=== PATIENT | female | born 1980 | race Caucasian/White ===

== ENCOUNTER 2020-12-19 13:55 | Outpatient (CLI) | payer OTHER, SELFPAY ==
--- NOTE | 2020-12-19 14:05 | US_ITS ---
WS: [id number] INDICATION: Posterior ear lump TECHNIQUE: Ultrasound soft tissue area of concern. FINDINGS: Ultrasound soft tissue area of concern posterior to the left ear. No evidence of pathologic mass or fluid collection. A few small normal-sized lymph nodes in this area measuring 7 x 4 mm and 6.2 x 4.5 mm. No other suspi cious findings. IMPRESSION: A few normal-sized lymph nodes in the area of concern. No other suspicious findings.
== END 2020-12-19 13:56 | disposition home or self-care (01) ==
LOC: RAD 14:01
PROVIDERS: PCP Family Medicine; Visit Provider Nurse Practitioner Family
DX: R59.9 Enlarged lymph nodes, unspecified (principal)
CPT/HCPCS: 76882

== ENCOUNTER 2021-01-19 08:50 | Emergency (ER) | payer OTHER, SELFPAY ==
[2021-01-19 08:53] VITALS: BP 113/83; PULSE 112; RESP 15; TEMP 36.8; O2SAT 98; BMI 18.0
[2021-01-19 08:59] VITALS: BP 92/65; PULSE 70; RESP 19; TEMP 36.9; O2SAT 99
--- NOTE | 2021-01-19 09:03 | ED_ITS ---
Documented by User: YAMILET Richardson 01/20/21 07:38 HPI - General Adult General: Chief complaint: General Medical Stated complaint: Vomiting, Fever, Feels really sick Time Seen by Provider: 01/19/21 09:01 History of Present Illness: HPI narrative: Patient is a 40-year-old female comes to the ED with cough, headache and diarrhea. Symptoms started 2 days ago. Her cough was initially productive but for the last 24 hours it has been dry. She has been having really bad diarrhea for the past 2 days as well. She endorses feeling very fatigued and has a headache. Patient had COVID-19 last year and states that this feels similar to her last episode of Covid. She tested negative for COVID-19 2 days ago at work. Associated symptoms: Reports malaise and nausea; Deny chest pain, dyspnea, headache(s), rash, palpitations or vomiting Review of Systems Const: Reports: fatigue and malaise; Denies: fever(s) or chills Eyes: Denies: change in vision or eye discomfort ENMT: Denies: throat pain, odynophagia, nasal discharge or nasal congestion Card: Denies: chest pain, palpitations, edema, swelling of feet/ankles, dyspnea on exertion or orthopnea Resp: Reports: non-productive cough; Denies: dyspnea or productive cough GI: Reports: nausea and diarrhea; Denies: abdominal pain, vomiting, constipation or hematochezia : Denies: flank pain, dysuria or hematuria Musc: Denies: neck pain, back pain or extremity swelling Skin/Breast: Denies: rash or new lesions Neuro: Denies: headache(s), numbness in extremities or weakness in extremities PFSH ED PFSH: Medical History Anxiety Rheumatoid arthritis Surgical History No pertinent past surgical history Social History Smoking and tobacco status: former smoker History of recent travel: No Female Reproductive History: Date of last menstrual period: 01/12/21 Physical Exam Const: COMMON NORMALS: no acute distress, patient oriented x3 and alert GENERAL APPEARANCE: cooperative and comfortable HENMT: COMMON NORMALS: normocephalic HEAD & SCALP: normocephalic MOUTH: moist mucous membranes abnormal Details: parched THROAT: posterior oropharynx normal and uvula midline Eye: COMMON NORMALS: Equal, round and reactive pupils present PUPIL: Yes Equal, round and reactive pupils present Neck/C-Spine: COMMON NORMALS: supple GENERAL: Yes normal visual inspection Resp: COMMON NORMALS: normal respiratory effort, No retractions, No use of accessory muscles and clear to auscultation bilaterally EFFORT & INSPECTION: Yes able to speak in complete sentences, No tachypneic, No respiratory distress and No labored AUSCULTATION: clear to auscultation bilaterally Cardio: COMMON NORMALS: regular rhythm, S1 normal heart sound present, S2 normal heart sound present, No gallops present (Cardio), No clicks present (Cardio), No murmurs present (Cardio) and Peripheral pulses 2+ throughout RATE: tachycardic (120's) RHYTHM: regular rhythm HEART SOUNDS: S1 normal heart sound present and S2 normal heart sound present PERIPHERAL PULSES: Peripheral pulses 2+ throughout GI: COMMON NORMALS: Normal to inspection, nondistended, normoactive bowel sounds present, Soft to palpation, non-tender and no masses PALPATION: Yes Soft to palpation : COMMON NORMALS: Yes no CVA tenderness BLADDER/KIDNEY EXAM: Yes no CVA tenderness Back/Pelvis: COMMON NORMALS: no CVA tenderness Extremity: COMMON NORMALS: normal to inspection Neuro: COMMON NORMALS: patient oriented x3 and moves all extremities SENSORIUM/ORIENTATION: Yes alert Skin: GENERAL SKIN EXAM: dry skin Course Vital Signs: Vital signs: Vital Signs Temperature 98.4 F 01/19/21 08:59 Pulse Rate 70 01/19/21 08:59 Respiratory Rate 19 H 01/19/21 08:59 Blood Pressure 92/65 01/19/21 08:59 Pulse Oximetry 99 01/19/21 08:59 MDM - General Adult MDM Narrative: Medical decision making narrative: Patient is a 40-year-old fem ozzie comes to the ED with diarrhea, cough and headache. Patient appears nontoxic in no acute distress or pain. Vitals?heart rate was a little tacky in the 110- 120 range but the rest of vitals were stable. Labs were unremarkable. Troponin negative. D-dimer normal. EKG-sinus rhythm, 79 bpm, no ST segment elevation or depression seen. Chest x-ray shows no acute findings. Rapid Covid test negat marky and PCR Covid test pending. Patient was given a liter of IV fluids while here in the ED and Zofran for some nausea. Patient was no longer tachycardic and rest of her vitals were stable as well. Her symptoms improved and she was feeling better. Patient diagnosed with viral syndrome. She was discharged home with a prescription for Zofran. Follow-up with PCP in 7 to 10 days reevaluation. Return to ED precautions given. Patient understood and agreed with plan. Lab Data: Attestation: I reviewed the patient's lab results. Labs: Lab Results 01/19/21 01/19/21 01/19/21 09:25 09:25 09:25 WBC 4.7 10^3/uL 10^3/ uL (4.0-10.0) RBC 5.05 10^6/uL 10^6 /uL (4.1-5.3) Hgb 14.8 g/dL g/dL (11.5-15.3) Hct 44.8 % % (37.0-47.0) MCV 88.7 fl fl (81-99) MCH 29.3 pg pg (28.0-34.0) MCHC 33.0 g/dL g/dL (30.0-36.0) RDW 11.7 % L % (12.1-15.1) Plt Count 183 10^3/cmm 10^3 /cmm (130-400) MPV 10.3 fL fL (7.4-10.4) Neut % (Auto) 61.4 % % Lymph % (Auto) 28.1 % % [place] % (Auto) 8.2 % % Eos % (Auto) 1.5 % % Baso % (Auto) 0.6 % % Neut # (Auto) 2.90 10^3/uL 10^3 /uL (1.8-7.7) Lymph # (Auto) 1.3 10^3/uL 10^3/ uL (0.8-4.8) [place] # (Auto) 0.4 10^3/uL 10^3/ uL (0.2-0.9) Eos # (Auto) 0.1 10^3/uL 10^3/ uL (0.0-0.8) Baso # (Auto) 0.0 10^3/uL 10^3/ uL (0.0-0.1) Nucleated RBC % (a uto) 0 % % Nucleated RBCs # 0.0 /100WBC /100W BC D-Dimer Sodium 137 mmol/L mmol/L (136-145) Potassium 3.8 mmol/L mmol/L (3.5-5.1) Chloride 104 mmol/L mmol/L (98-107) Carbon Dioxide 22 mmol/L mmol/L (22-29) Anion Gap 14.8 (5-19) BUN 6 mg/dL mg/dL (6-20) Creatinine 0.6 mg/dL mg/dL (0.5-0.9) GFR Calculation 111.3 mL/min mL/m in (90-130) Glucose 92 mg/dL mg/dL (65-115) Calculated Osmolal ity 281 mOsm/kg L mOs m/kg (285-295) Calcium 9.7 mg/dL mg/dL (8.5-10.5) Total Bilirubin 0.6 mg/dL mg/dL (0.15-1.2) AST 15 U/L U/L (0-32) ALT 13 U/L U/L (0-33) Alkaline Phosphata se 57 IU/L IU/L (35-105) Troponin T Baselin e Total Protein 6.7 g/dL g/dL (6.6-8.7) Albumin 4.8 g/dL g/dL (3.5-5.2) Globulin 1.9 g/dL g/dL (1.3-4.6) Lipase 19 U/L U/L (13-60) HCG, Qual Negative (Negative) Urine Color Urine Appearance Urine pH Ur Specific Gravit y Urine Protein Urine Glucose (UA) Urine Ketones Urine Blood Urine Nitrate Urine Bilirubin Prot Sulfosalicyli c Acd Urine Urobilinogen Ur Leukocyte Gayle ase Nasal/Oral COVID-1 9 PCR SARS-CoV-2 Ag (Rap id) 01/19/21 01/19/21 01/19/21 09:25 09:25 09:25 WBC RBC Hgb Hct MCV MCH MCHC RDW Plt Count MPV Neut % (Auto) Lymph % (Auto) [place] % (Auto) Eos % (Auto) Baso % (Auto) Neut # (Auto) Lymph # (Auto) [place] # (Auto) Eos # (Auto) Baso # (Auto) Nucleated RBC % (a uto) Nucleated RBCs # D-Dimer <= 0.27 ug/mIFEU ug/mIFEU (0-0.59) Sodium Potassium Chloride Carbon Dioxide Anion Gap BUN Creatinine GFR Calculation Glucose Calculated Osmolal ity Calcium Total Bilirubin AST ALT Alkaline Phosphata se Troponin T Baselin e 6 ng/L ng/L (0-10) Total Protein Albumin Globulin Lipase HCG, Qual Urine Color Urine Appearance Urine pH Ur Specific Gravit y Urine Protein Urine Glucose (UA) Urine Ketones Urine Blood Urine Nitrate Urine Bilirubin Prot Sulfosalicyli c Acd Urine Urobilinogen Ur Leukocyte Gayle ase Nasal/Oral COVID-1 9 PCR Not detected SARS-CoV-2 Ag (Rap id) 01/19/21 01/19/21 09:25 11:10 WBC RBC Hgb Hct MCV MCH MCHC RDW Plt Count MPV Neut % (Auto) Lymph % (Auto) [place] % (Auto) Eos % (Auto) Baso % (Auto) Neut # (Auto) Lymph # (Auto) [place] # (Auto) Eos # (Auto) Baso # (Auto) Nucleated RBC % (a uto) Nucleated RBCs # D-Dimer Sodium Potassium Chloride Carbon Dioxide Anion Gap BUN Creatinine GFR Calculation Glucose Calculated Osmolal ity Calcium Total Bilirubin AST ALT Alkaline Phosphata se Troponin T Baselin e Total Protein Albumin Globulin Lipase HCG, Qual Urine Color Straw (Yellow) Urine Appearance Clear (CLEAR) Urine pH 8 H (5-7) Ur Specific Gravit y 1.005 (1.005-1.030) Urine Protein Neg (Negative) Urine Glucose (UA) Norm (Normal) Urine Ketones 1+ H (Negative) Urine Blood Neg (Negative) Urine Nitrate Negative (Negative) Urine Bilirubin Neg (Negative) Prot Sulfosalicyli c Acd Negative (Negative) Urine Urobilinogen Norm mg/dL mg/dL (Negative) Ur Leukocyte Gayle ase Negative (Negative) Nasal/Oral COVID-1 9 PCR SARS-CoV-2 Ag (Rap id) Negative (Negative) Imaging Data^: CXR: Attestation: I personally reviewed and interpreted this imaging study as follows: Radiologist's impression: [address] [place] [address] XRay Report Signed Patient: Radha Higuera Unit #: [id number] : 1980 Age/Sex: 40 / F ADM Date: 01/19/21 Loc: ER Room/Bed: Attending Dr: Ordering Provider/Ordering MD: Juve Arana Date of Service: 01/19/21 Procedure(s): XR chest 1V portable [id number] Accession Number(s): [id number] Report Number: [id number] WS: [id number] Portable AP upright chest, 01/19/2021 Clinical Data: cough Comparison: None. Findings: No nodules, masses or effusions are seen. The heart is normal. The pulmonary vascularity is not increased. No pneumonia or pneumothorax is seen. The diaphragms are flattened. Monitor leads on the chest wall. XR/XR chest 1V portable [id number] Impression: Hyperinflation. Dictated By: Tiffanie Casas MD Signed By: Tiffanie Casas MD Signed Date/Time: 01/19/21947 DD/ 6 EKG Data^: EKG 1: Attestation: I personally reviewed and interpreted this EKG as follows: EKG interpretation date: 01/19/21 Interpretation: Normal sinus rhythm with sinus arrhythmia present., 79 bpm, no ST segment elevation or depression seen. Computer generated interpretation: Chest X-Ray 01/19/21 09:13 Impression: Hyperinflation. Discharge Plan Discharge Patient Disposition: Home Clinical Impression: Viral syndrome Condition: Stable Prescriptions: New Zofran 4 mg tablet 4 mg PO Q8H PRN (Reason: nausea and vomiting) Qty: 15 RF: 0 No Action clonazepam 0.5 mg tablet See Rx Instructions .ROUTE .COMPLEX RF: 0 Aspir-81 81 mg Tablet,Delayed Release (Dr/Ec) 81 mg PO DAILY RF: 0 Tylenol Ex Str Rapid Release 500 mg Tablet 500 mg PO Q4H PRN (Reason: Pain) RF: 0 Adult Multivitamin Gummies 200 mcg Tablet,Chewable See Rx Instructions .ROUTE .COMPLEX RF: 0 Elderberry Gummies See Rx Instructions .ROUTE .COMPLEX RF: 0 Discharge Orders: Discharge ED (Routine); Ordered 01/19/21 Ordered By: Juve Arana Referrals: Francois Bean [Primary Care Provider] - Discharge Diet: Regular Discharge Activity: Increase activity as tolerated Patient Instructions: Viral Syndrome (ED) Activity Restrictions/Additional Instructions: Follow-up with medical provider as directed in 7-10 days for reevaluation. Take medications as prescribed. Make sure you drink plenty of fluids and stay hydrated. Return to the ER or your medical provider if condition worsens. Please read and understand discharge instructions. Thank you for choosing [facility] for your healthcare needs today. Please realize this is an emergency room and that we are providing you with a medical screening exam and this may not be complete and all inclusive of all the testing and or work up that you may need to determine your ailment or severity of your illness. It is very important that you follow up as instructed or that you return to the Emergency Department should you have concerns or if your condition changes or worsens in any way. Stand Alone Forms: Work/School Release Coding Level of Care Code ED Corrosion Control Specialist for Chg Fwd Exam Comprehensive Documented by User: Pdero Rodriguez MD 01/23/21 20:29 HPI - General Adult General: Chief complaint: General Medical Stated complaint: Vomiting, Fever, Feels really sick Time Seen by Provider: 01/19/21 09:01 [facility] ED PFSH: Medical History Anxiety Rheumatoid arthritis Surgical History No pertinent past surgical history Social History Smoking and tobacco status: former smoker History of recent travel: No Course Vital Signs: Vital signs: Vital Signs Temperature 98.4 F 01/19/21 08:59 Pulse Rate 70 01/19/21 08:59 Respiratory Rate 19 H 01/19/21 08:59 Blood Pressure 92/65 01/19/21 08:59 Pulse Oximetry 99 01/19/21 08:59 MDM - General Adult MDM Narrative: Medical decision making narrative: I discussed the case with YAMILET Richardson. Pedro Rodriguez MD Emergency Medicine Lab Data: Labs: Lab Results 01/19/21 01/19/21 01/19/21 09:25 09:25 09:25 WBC 4.7 10^3/uL 10^3/ uL (4.0-10.0) RBC 5.05 10^6/uL 10^6 /uL (4.1-5.3) Hgb 14.8 g/dL g/dL (11.5-15.3) Hct 44.8 % % (37.0-47.0) MCV 88.7 fl fl (81-99) MCH 29.3 pg pg (28.0-34.0) MCHC 33.0 g/dL g/dL (30.0-36.0) RDW 11.7 % L % (12.1-15.1) Plt Count 183 10^3/cmm 10^3 /cmm (130-400) MPV 10.3 fL fL (7.4-10.4) Neut % (Auto) 61.4 % % Lymph % (Auto) 28.1 % % [place] % (Auto) 8.2 % % Eos % (Auto) 1.5 % % Baso % (Auto) 0.6 % % Neut # (Auto) 2.90 10^3/uL 10^3 /uL (1.8-7.7) Lymph # (Auto) 1.3 10^3/uL 10^3/ uL (0.8-4.8) [place] # (Auto) 0.4 10^3/uL 10^3/ uL (0.2-0.9) Eos # (Auto) 0.1 10^3/uL 10^3/ uL (0.0-0.8) Baso # (Auto) 0.0 10^3/uL 10^3/ uL (0.0-0.1) Nucleated RBC % (a uto) 0 % % Nucleated RBCs # 0.0 /100WBC /100W BC D-Dimer Sodium 137 mmol/L mmol/L (136-145) Potassium 3.8 mmol/L mmol/L (3.5-5.1) Chloride 104 mmol/L mmol/L (98-107) Carbon Dioxide 22 mmol/L mmol/L (22-29) Anion Gap 14.8 (5-19) BUN 6 mg/dL mg/dL (6-20) Creatinine 0.6 mg/dL mg/dL (0.5-0.9) GFR Calculation 111.3 mL/min mL/m in (90-130) Glucose 92 mg/dL mg/dL (65-115) Calculated Osmolal ity 281 mOsm/kg L mOs m/kg (285-295) Calcium 9.7 mg/dL mg/dL (8.5-10.5) Total Bilirubin 0.6 mg/dL mg/dL (0.15-1.2) AST 15 U/L U/L (0-32) ALT 13 U/L U/L (0-33) Alkaline Phosphata se 57 IU/L IU/L (35-105) Troponin T Baselin e Total Protein 6.7 g/dL g/dL (6.6-8.7) Albumin 4.8 g/dL g/dL (3.5-5.2) Globulin 1.9 g/dL g/dL (1.3-4.6) Lipase 19 U/L U/L (13-60) HCG, Qual Negative (Negative) Urine Color Urine Appearance Urine pH Ur Specific Gravit y Urine Protein Urine Glucose (UA) Urine Ketones Urine Blood Urine Nitrate Urine Bilirubin Prot Sulfosalicyli c Acd Urine Urobilinogen Ur Leukocyte Gayle ase Nasal/Oral COVID-1 9 PCR SARS-CoV-2 Ag (Rap id) 01/19/21 01/19/21 01/19/21 09:25 09:25 09:25 WBC RBC Hgb Hct MCV MCH MCHC RDW Plt Count MPV Neut % (Auto) Lymph % (Auto) [place] % (Auto) Eos % (Auto) Baso % (Auto) Neut # (Auto) Lymph # (Auto) [place] # (Auto) Eos # (Auto) Baso # (Auto) Nucleated RBC % (a uto) Nucleated RBCs # D-Dimer <= 0.27 ug/mIFEU ug/mIFEU (0-0.59) Sodium Potassium Chloride Carbon Dioxide Anion Gap BUN Creatinine GFR Calculation Glucose Calculated Osmolal ity Calcium Total Bilirubin AST ALT Alkaline Phosphata se Troponin T Baselin e 6 ng/L ng/L (0-10) Total Protein Albumin Globulin Lipase HCG, Qual Urine Color Urine Appearance Urine pH Ur Specific Gravit y Urine Protein Urine Glucose (UA) Urine Ketones Urine Blood Urine Nitrate Urine Bilirubin Prot Sulfosalicyli c Acd Urine Urobilinogen Ur Leukocyte Gayle ase Nasal/Oral COVID-1 9 PCR Not detected SARS-CoV-2 Ag (Rap id) 01/19/21 01/19/21 09:25 11:10 WBC RBC Hgb Hct MCV MCH MCHC RDW Plt Count MPV Neut % (Auto) Lymph % (Auto) [place] % (Auto) Eos % (Auto) Baso % (Auto) Neut # (Auto) Lymph # (Auto) [place] # (Auto) Eos # (Auto) Baso # (Auto) Nucleated RBC % (a uto) Nucleated RBCs # D-Dimer Sodium Potassium Chloride Carbon Dioxide Anion Gap BUN Creatinine GFR Calculation Glucose Calculated Osmolal ity Calcium Total Bilirubin AST ALT Alkaline Phosphata se Troponin T Baselin e Total Protein Albumin Globulin Lipase HCG, Qual Urine Color Straw (Yellow) Urine Appearance Clear (CLEAR) Urine pH 8 H (5-7) Ur Specific Gravit y 1.005 (1.005-1.030) Urine Protein Neg (Negative) Urine Glucose (UA) Norm (Normal) Urine Ketones 1+ H (Negative) Urine Blood Neg (Negative) Urine Nitrate Negative (Negative) Urine Bilirubin Neg (Negative) Prot Sulfosalicyli c Acd Negative (Negative) Urine Urobilinogen Norm mg/dL mg/dL (Negative) Ur Leukocyte Gayle ase Negative (Negative) Nasal/Oral COVID-1 9 PCR SARS-CoV-2 Ag (Rap id) Negative (Negative) EKG Data^: EKG 1: Computer generated interpretation: Chest X-Ray 01/19/21 09:13 Impression: Hyperinflation. Discharge Plan Discharge Patient Disposition: Home Clinical Impression: Viral syndrome Condition: Stable Prescriptions: New Zofran 4 mg tablet 4 mg PO Q8H PRN (Reason: nausea and vomiting) Qty: 15 RF: 0 No Action clonazepam 0.5 mg tablet See Rx Instructions .ROUTE .COMPLEX RF: 0 Aspir-81 81 mg Tablet,Delayed Release (Dr/Ec) 81 mg PO DAILY RF: 0 Tylenol Ex Str Rapid Release 500 mg Tablet 500 mg PO Q4H PRN (Reason: Pain) RF: 0 Adult Multivitamin Gummies 200 mcg Tablet,Chewable See Rx Instructions .ROUTE .COMPLEX RF: 0 Elderberry Gummies See Rx Instructions .ROUTE .COMPLEX RF: 0 Discharge Orders: Discharge ED (Routine); Ordered 01/19/21 Ordered By: Juve Arana Referrals: Francois Bean [Primary Care Provider] - Discharge Diet: Regular Discharge Activity: Increase activity as tolerated Patient Instructions: Viral Syndrome (ED) Activity Restrictions/Additional Instructions: Follow-up with medical provider as directed in 7-10 days for reevaluation. Take medications as prescribed. Make sure you drink plenty of fluids and stay hydrat ed. Return to the ER or your medical provider if condition worsens. Please read and understand discharge instructions. Thank you for choosing [facility] for your healthcare needs today. Angel Luis liao realize this is an emergency room and that we are providing you with a medical screening exam and this may not be complete and all inclusive of all the testing and or work up that you may need to determine your ailment or severity of your illness. It is very important that you follow up as instructed or that you return to the Emergency Department should you have concerns or if your condition changes or worsens in any way. Stand Alone Forms: Work/School Release Coding Level of Care Code ED Corrosion Control Specialist for [place] Fwd Exam Comprehensive
--- NOTE | 2021-01-19 09:13 | XR_ITS ---
WS: [id number] Portable AP upright chest, 01/19/2021 Clinical Data: cough Comparison: None. Findings: No nodules, masses or effusions are seen. The heart is normal. The pulmonary vascularity is not increased. No pneumonia or pneumothorax is seen. The diaphragms are flattened. Monitor leads on the chest wall. XR/XR chest 1V portable [id number] Impression: Hyperinflation.
--- NOTE | 2021-01-19 09:13 | ECG_ITS ---
[facility] Test Date: 2021-01-19 Pat Name: Radha Higuera Department: Room: Gender: Female Inspector Publications: : 1980 Requested By: Juve Arana Order Number: [id number] Hany MD: DANIEL FINN Measurements Intervals [place] Rate: 79 P: 81 [place]: 164 QRS: 68 QRSD: 106 T: 58 QT: 359 QTc: 413 Interpretive Statements SINUS RHYTHM WITH MARKED SINUS ARRHYTHMIA No previous ECG available for comparison Electronically Signed On 01-19-2021 13:56:36 CDT by DANIEL FINN [email or web address]
[2021-01-19 09:44] LABS: Basophils % 0.6 %; Eosinophils # 0.1 10^3/uL (0.0-0.8); Eosinophils % 1.5 %; Hematocrit 44.8 % (37.0-47.0); Hemoglobin 14.8 g/dL (11.5-15.3); Lymphocytes # 1.3 10^3/uL (0.8-4.8); Lymphocytes % 28.1 %; Mean Corpuscular Hemoglobin 29.3 pg (28.0-34.0); Mean Corpuscular Volume 88.7 fl (81-99); Mean Platelet Volume 10.3 fL (7.4-10.4); Monocytes # 0.4 10^3/uL (0.2-0.9); Monocytes % 8.2 %; Neutrophils % 61.4 %; Nucleated Red Blood Cells % 0 %; Platelet Count 183 10^3/cmm (130-400); Red Blood Count 5.05 10^6/uL (4.1-5.3); Red Cell Distribution Width 11.7 % (12.1-15.1); White Blood Count 4.7 10^3/uL (4.0-10.0)
--- NOTE | 2021-01-19 09:52 | PC.NURSE ---
Pt arrived via POV with mother, c/o nausea, diarrhea x 2 days, general body aches, intermittent chest pain and frequent palpitations. Pt states she had covd last year and has been tested weekly at work with negative results. Pt A/O, vss, pt palced on monitor. Pt states whenevr she attempts to stand or walk her HR jumps significantly. Pt states she is unable to give urine at this time and is extremely dehydrated .
[2021-01-19 09:53] LABS: HCG, Serum Qual Negative (Negative)
[2021-01-19 09:57] LABS: D Dimer <= 0.27 ug/mIFEU (0-0.59)
[2021-01-19] MEDS: sodium chloride 0.9% 1,000 ML 999 ML IV (09:58)
[2021-01-19 10:00] LABS: Alanine Aminotransferase 13 U/L (0-33); Albumin Level 4.8 g/dL (3.5-5.2); Alkaline Phosphatase 57 IU/L (35-105); Anion Gap 14.8 (5-19); Aspartate Amino Transferase 15 U/L (0-32); Blood Urea Nitrogen 6 mg/dL (6-20); Calcium 9.7 mg/dL (8.5-10.5); Carbon Dioxide 22 mmol/L (22-29); Chloride 104 mmol/L (98-107); Globulin 1.9 g/dL (1.3-4.6); Glomerular Filtration Rate 111.3 mL/min (90-130); Glucose 92 mg/dL (65-115); Lipase 19 U/L (13-60); Osmolality Calculated 281 mOsm/kg (285-295); Potassium 3.8 mmol/L (3.5-5.1); Sodium 137 mmol/L (136-145); Total Bilirubin 0.6 mg/dL (0.15-1.2); Total Protein 6.7 g/dL (6.6-8.7); Troponin(5th) Baseline 6 ng/L (0-10)
[2021-01-19 10:41] LABS: SARS Covid-2 Antigen Negative (Negative)
[2021-01-19] MEDS: ondansetron 2 mg/ML SDV 2 mL 4 MG IVP (11:04)
[2021-01-19 11:19] LABS: Add Urine Microscopic? NO; Charge for UA Resulting for Rev
[2021-01-19 11:32] LABS: Glucose Urine UA Norm (Normal); Protein Urine Neg (Negative); Specific Gravity, Urine 1.005 (1.005-1.030); Urine Appearance Clear (CLEAR); Urine Color Straw (Yellow); pH Urine 8 (5-7)
[2021-01-19 11:33] LABS: Bilirubin Urine Neg (Negative); Blood Urine Neg (Negative); Ketones Urine 1+ (Negative); Leukocyte Esterase Urine Negative (Negative); Nitrate Urine Negative (Negative); Sulfosalicylic Acid Urine Negative (Negative); Urobilinogen Urine Norm (Negative)
[2021-01-20 16:56] LABS: Coronavirus Test Green County Not Detected
== END 2021-01-19 12:04 | disposition home or self-care (01) ==
PROVIDERS: Emergency Provider Physician Assistant; PCP Family Medicine
DX: B34.9 Viral infection, unspecified (principal); Z79.82 Long term (current) use of aspirin; Z87.891 Personal history of nicotine dependence; Z20.822 Contact with and (suspected) exposure to COVID-19
CPT/HCPCS: 36415; 71045; 80053; 81003; 83690; 84484; 84703; 85025; 85378; 87040; 87426; 87635; 93005; 96361; 96374; 99283; 99291; J2405; J7030

== ENCOUNTER 2021-04-28 07:04 | Emergency (ER) | payer OTHER, SELFPAY ==
[2021-04-28 07:18] VITALS: BP 121/83; PULSE 103; RESP 16; TEMP 36.9; O2SAT 99; BMI 16.6
--- NOTE | 2021-04-28 07:21 | W.ED.COVID ---
HPI - COVID General: Chief Complaint: COVID symptoms Stated Complaint: Has COVID symptoms, testing negative everytime Time Seen by Provider: 04/28/21 07:08 Source: patient Mode of arrival: ambulatory Limitations: no limitations Triage information: Has fever, cough or shortness of breath. Exposure to COVID + person last 14 days History of Present Illness: 40-year-old female presents to the emergency room with complaint of myalgias cough and shortness of breath. She has some nausea vomiting loss of appetite. Patient works in [place] she has been exposed to Covid evidently the testing her daily with antigen test for the last 7 to 8 days. States she has had COVID a year ago and did test positive. She denies any chest pain or abdominal pain. No dysuria urgency or frequency she tried various [id number] medications with no relief of symptoms. MD complaint: reported COVID exposure and has COVID symptoms Prior covid testing: yes, results known COVID 19 common symptoms: positive fever(s), chills, cough, non-productive cough, dyspnea, body aches, headache(s), nasal congestion, nausea and vomiting COVID 19 other sytmptoms: negative requiring oxygen Onset (ago): day(s) (10+) Treatment prior to arrival: acetaminophen COVID Results: SARS-CoV-2 Antigen (Rapid) Negative (Negative) 01/19/21 09:25 01/19/21 SARS-CoV-2 RNA (RT-PCR) Pending 04/28/21 07:39 04/28/21 Nasal/Oral Coronavirus 2019 PCR Not detected 01/19/21 09:25 01/19/21 Review of Systems Const: Reports: fever(s), chills and body aches ENMT: Reports: nasal congestion Resp: Reports: dyspnea and non-productive cough GI: Reports: nausea and vomiting Neuro: Reports: headache(s) PFS ED PFSH: Medical History Anxiety Rheumatoid arthritis Surgical History No pertinent past surgical history Social History Smoking and tobacco status: former smoker History of recent travel: No Female Reproductive History: Date of last menstrual period: 01/12/21 Physical Exam Const: GENERAL APPEARANCE: cooperative and comfortable ORIENTATION/CONSCIOUSNESS: Yes awake, Yes oriented to person, Yes oriented to place and Yes oriented to time HENMT: COMMON NORMALS: normocephalic and atraumatic HEAD & SCALP: normocephalic and atraumatic Neck/C-Spine: COMMON NORMALS: no JVD Resp: COMMON NORMALS: normal respiratory effort, No retractions, No use of accessory muscles and clear to auscultation bilaterally AUSCULTATION: clear to auscultation bilaterally Cardio: COMMON NORMALS: no JVD, regular rate, regular rhythm and No murmurs present (Cardio) RATE: regular rate RHYTHM: regular rhythm GI: COMMON NORMALS: Soft to palpation and No hepatosplenomegaly present AUSCULTATION: Yes normoactive bowel sounds PALPATION: Yes Soft to palpation, No Tenderness to palpation present (GI), No Guarding due to palpation present (GI) and Yes No hepatosplenomegaly present Extremity: COMMON NORMALS: normal to inspection, capillary refill normal, no clubbing, cyanosis or edema, no calf tenderness and no pedal edema Neuro: SENSORIUM/ORIENTATION: Yes oriented to person, Yes oriented to place and Yes oriented to time Skin: COMMON NORMALS: no rashes or lesions noted GENERAL SKIN EXAM: no rashes or lesions noted Course Vital Signs: Vital signs: Vital Signs Temperature 98.5 F 04/28/21 07:18 Pulse Rate 76 04/28/21 08:50 Respiratory Rate 16 04/28/21 08:50 Blood Pressure 102/58 04/28/21 08:50 Pulse Oximetry 100 04/28/21 08:50 MDM - COVID Medical Decision Making Patient may have COVID although I am a little bit skeptical. She is been tested serially with antigens and if negative we did send a PCR today suspect she may have more GI issues working to go ahead and discharge her home with Zofran as needed if persists follow-up with her primary care doctor may need endoscopy Medical Records I reviewed the patient's medical records. Lab Data I reviewed the patient's lab results. : 04/28/21 07:39 04/28/21 07:39 Radiology Impressions Chest X-Ray 04/28/21 07:32 IMPRESSION: Unremarkable portable chest. Laboratory Results WBC 3.0 10^3/uL (4.0-10.0) L 04/28/21 07:39 RBC 4.48 10^6/uL (4.1-5.3) 04/28/21 07:39 Hgb 13.5 g/dL (11.5-15.3) 04/28/21 07:39 Hct 40.8 % (37.0-47.0) 04/28/21 07:39 MCV 91.1 fl (81-99) 04/28/21 07:39 MCH 30.1 pg (28.0-34.0) 04/28/21 07:39 MCHC 33.1 g/dL (30.0-36.0) 04/28/21 07:39 RDW 11.7 % (12.1-15.1) L 04/28/21 07:39 Plt Count 179 10^3/cmm (130-400) 04/28/21 07:39 MPV 9.8 fL (7.4-10.4) 04/28/21 07:39 Neut % (Auto) 47.7 % 04/28/21 07:39 Lymph % (Auto) 38.4 % 04/28/21 07:39 [place] % (Auto) 11.3 % 04/28/21 07:39 Eos % (Auto) 2.0 % 04/28/21 07:39 Baso % (Auto) 0.3 % 04/28/21 07:39 Neut # (Auto) 1.44 10^3/uL (1.8-7.7) L 04/28/21 07:39 Lymph # (Auto) 1.2 10^3/uL (0.8-4.8) 04/28/21 07:39 [place] # (Auto) 0.3 10^3/uL (0.2-0.9) 04/28/21 07:39 Eos # (Auto) 0.1 10^3/uL (0.0-0.8) 04/28/21 07:39 Baso # (Auto) 0.0 10^3/uL (0.0-0.1) 04/28/21 07:39 Nucleated RBC % (auto) 0 % 04/28/21 07:39 Nucleated RBCs # 0.0 /100WBC 04/28/21 07:39 Sodium 138 mmol/L (136-145) 04/28/21 07:39 Potassium 4.0 mmol/L (3.5-5.1) 04/28/21 07:39 Chloride 107 mmol/L (98-107) 04/28/21 07:39 Carbon Dioxide 22 mmol/L (22-29) 04/28/21 07:39 Anion Gap 13.0 (5-19) 04/28/21 07:39 BUN 7 mg/dL (6-20) 04/28/21 07:39 Creatinine 0.5 mg/dL (0.5-0.9) 04/28/21 07:39 GFR Calculation 137.4 mL/min (90-130) H 04/28/21 07:39 Glucose 88 mg/dL (65-115) 04/28/21 07:39 Calculated Osmolality 283 mOsm/kg (285-295) L 04/28/21 07:39 Calcium 8.6 mg/dL (8.5-10.5) 04/28/21 07:39 Total Bilirubin 0.3 mg/dL (0.15-1.2) 04/28/21 07:39 AST 21 U/L (0-32) 04/28/21 07:39 ALT 19 U/L (0-33) 04/28/21 07:39 Alkaline Phosphatase 59 IU/L (35-105) 04/28/21 07:39 Total Protein 6.3 g/dL (6.6-8.7) L 04/28/21 07:39 Albumin 4.3 g/dL (3.5-5.2) 04/28/21 07:39 Globulin 2.0 g/dL (1.3-4.6) 04/28/21 07:39 SARS-CoV-2 Antigen (Rapid) Negative (Negative) 01/19/21 09:25 01/19/21 SARS-CoV-2 RNA (RT-PCR) Pending 04/28/21 07:39 04/28/21 Nasal/Oral Coronavirus 2019 PCR Not detected 01/19/21 09:25 01/19/21 Discharge Plan Discharge Patient Disposition: Home Clinical Impression: Viral URI, Nausea & vomiting Condition: Stable Prescriptions: New Zofran 4 mg tablet 4 mg PO Q6H PRN (Reason: nausea and vomiting) Qty: 15 0RF No Action Juice Plus Tabs 1 tab PO QAM 0RF clonazepam 0.5 mg tablet See Rx Instructions .ROUTE .COMPLEX 0RF Rx Instructions: 2 TABS (1MG) PO QAM, 1 TAB (0.5MG) PO @NOON AND 1 TAB (0.5MG) @ BEDTIME acetaminophen [Tylenol Ex Str Rapid Release] 500 mg Tablet 1,000 mg PO Q6H PRN (Reason: pain/fever) 0RF Discharge Orders: Discharge ED (Routine); Ordered 04/28/21 Ordered By: Seng Anaya Referrals: Francois Bean [Primary Care Provider] - Discharge Diet: Clear Liquid Discharge Activity: Increase activity as tolerated Patient Instructions: Opioid Safety Activity Restrictions/Additional Instructions: Use Zofran as needed for nausea. Clear liquid diet for 24 to 48 hours and advance as tolerated if symptoms persist or worsen you can return to the emergency room or follow-up with your primary care physician. Coding Level of Care Code ED Clinical Sciences Professor for Lorene Fwdick Exam Comprehensive
[2021-04-28 07:25] VITALS: O2SAT 99
--- NOTE | 2021-04-28 07:32 | XR_ITS ---
WS: [id number] PORTABLE CHEST HISTORY: dyspnea/cough COMPARISON: 01/19/2021 Lungs are clear and well expanded. No pleural effusion or pneumothorax. Cardiac size: Normal. Mediastinum/Aorta: Normal mediastinum. No osseous abnormality seen. XR/XR chest 1V portable [id number] IMPRESSION: Unremarkable portable chest.
[2021-04-28 07:37] VITALS: BP 121/83; PULSE 79; RESP 16; O2SAT 99
[2021-04-28 07:46] LABS: Basophils % 0.3 %; Eosinophils # 0.1 10^3/uL (0.0-0.8); Hematocrit 40.8 % (37.0-47.0); Hemoglobin 13.5 g/dL (11.5-15.3); Lymphocytes # 1.2 10^3/uL (0.8-4.8); Lymphocytes % 38.4 %; Mean Corpuscular HGB Conc 33.1 g/dL (30.0-36.0); Mean Corpuscular Hemoglobin 30.1 pg (28.0-34.0); Mean Corpuscular Volume 91.1 fl (81-99); Mean Platelet Volume 9.8 fL (7.4-10.4); Monocytes # 0.3 10^3/uL (0.2-0.9); Monocytes % 11.3 %; Neutrophils # 1.44 10^3/uL (1.8-7.7); Neutrophils % 47.7 %; Nucleated Red Blood Cells % 0 %; Platelet Count 179 10^3/cmm (130-400); Red Blood Count 4.48 10^6/uL (4.1-5.3); Red Cell Distribution Width 11.7 % (12.1-15.1)
[2021-04-28] MEDS: sodium chloride 0.9% 500 ML 999 ML IV (07:47)
[2021-04-28] MEDS: ondansetron 2 mg/ML SDV 2 mL 4 MG IVP (07:47)
[2021-04-28 08:19] LABS: Alanine Aminotransferase 19 U/L (0-33); Albumin Level 4.3 g/dL (3.5-5.2); Alkaline Phosphatase 59 IU/L (35-105); Aspartate Amino Transferase 21 U/L (0-32); Blood Urea Nitrogen 7 mg/dL (6-20); Calcium 8.6 mg/dL (8.5-10.5); Carbon Dioxide 22 mmol/L (22-29); Chloride 107 mmol/L (98-107); Glomerular Filtration Rate 137.4 mL/min (90-130); Glucose 88 mg/dL (65-115); Osmolality Calculated 283 mOsm/kg (285-295); Sodium 138 mmol/L (136-145); Total Bilirubin 0.3 mg/dL (0.15-1.2); Total Protein 6.3 g/dL (6.6-8.7)
[2021-04-28 08:49] VITALS: PULSE 75; RESP 16; O2SAT 99
[2021-04-28 08:50] VITALS: BP 102/58; PULSE 76; RESP 16; O2SAT 100
[2021-04-29 18:01] LABS: Quest SARS-CoV-2 RNA NOT DETECTED (NOT DETECTED)
--- NOTE | 2021-05-01 18:36 | PC.NURSE ---
Informed pt of Negative COVID test
== END 2021-04-28 08:56 | disposition home or self-care (01) ==
PROVIDERS: Emergency Provider Family Medicine; PCP Family Medicine
DX: J06.9 Acute upper respiratory infection, unspecified (principal); R11.2 Nausea with vomiting, unspecified; Z87.891 Personal history of nicotine dependence; Z20.822 Contact with and (suspected) exposure to COVID-19
CPT/HCPCS: 71045; 80053; 85025; 87635; 96374; 99284; J2405; J7040

== ENCOUNTER 2022-02-13 09:14 | Emergency (ER) | payer OTHER, SELFPAY ==
[2022-02-13 09:19] VITALS: BP 106/74; PULSE 120; RESP 16; TEMP 36.8; O2SAT 97; BMI 19.5
--- NOTE | 2022-02-13 09:37 | W.ED.NAVMDI ---
Documented by User: [email or web address] Richardson 02/13/22 14:59 HPI - Nausea/Vomiting/Diarrhea General: Chief complaint: Nausea/Vomiting/Diarrhea Stated complaint: weightloss,n/v/d Time Seen by Provider: 02/13/22 09:17 History of Present Illness: Patient is a 41-year-old female who comes to the ED with fatigue. Over a week ago she started having symptoms of nausea, diarrhea, fevers, chills and body aches. Her fevers lasted for several days but those have stopped. For close to 6 to 7 days she was having 5+ episodes of diarrhea a day. Her diarrhea resolved several days ago. Denies any episodes of emesis. Currently she just feels malaise, fatigue and some generalized weakness. She feels a little dehydrated from all her diarrhea last week. Associated nausea: Yes Associated symtoms: Reports fatigue, malaise and nausea; Denies change in vision, chest pain, dysuria, headache(s) or palpitations Review of Systems Const: Reports: fever(s), chills, body aches, fatigue and malaise Eyes: Denies: change in vision or eye discomfort ENMT: Denies: throat pain, odynophagia, nasal discharge or nasal congestion Card: Denies: chest pain, palpitations, edema, swelling of feet/ankles, dyspnea on exertion or orthopnea Resp: Denies: dyspnea, productive cough or non-productive cough GI: Reports: nausea and diarrhea; Denies: abdominal pain, vomiting, constipation or hematochezia : Denies: flank pain, dysuria or hematuria Musc: Denies: neck pain, back pain or extremity swelling Skin/Breast: Denies: rash or new lesions Neuro: Denies: headache(s), numbness in extremities or weakness in extremities PFS ED PFSH: Medical History Anxiety Rheumatoid arthritis Surgical History No pertinent past surgical history Social History Smoking and tobacco status: former smoker History of recent travel: No Female Reproductive History: Date of last menstrual period: 01/12/21 Physical Exam Const: COMMON NORMALS: no acute distress, patient oriented x3 and alert GENERAL APPEARANCE: cooperative and comfortable HENMT: COMMON NORMALS: normocephalic HEAD & SCALP: normocephalic MOUTH: Normal oral and palatal mucosa present and moist mucous membranes abnormal Details: parched THROAT: posterior oropharynx normal and uvula midline Neck/C-Spine: COMMON NORMALS: supple GENERAL: Yes normal visual inspection Resp: COMMON NORMALS: normal respiratory effort, No retractions, No use of accessory muscles and clear to auscultation bilaterally AUSCULTATION: clear to auscultation bilaterally Cardio: COMMON NORMALS: regular rate, regular rhythm, S1 normal heart sound present, S2 normal heart sound present, No gallops present (Cardio), No clicks present (Cardio), No murmurs present (Cardio) and Peripheral pulses 2+ throughout RATE: regular rate RHYTHM: regular rhythm HEART SOUNDS: S1 normal heart sound present and S2 normal heart sound present PERIPHERAL PULSES: Peripheral pulses 2+ throughout GI: COMMON NORMALS: Normal to inspection, nondistended, normoactive bowel sounds present, Soft to palpation, non-tender and no masses PALPATION: Yes Soft to palpation : COMMON NORMALS: Yes no CVA tenderness BLADDER/KIDNEY EXAM: Yes no CVA tenderness Back/Pelvis: COMMON NORMALS: no CVA tenderness Extremity: COMMON NORMALS: normal to inspection Neuro: COMMON NORMALS: patient oriented x3 SENSORIUM/ORIENTATION: Yes alert GAIT: Yes Normal gait present Skin: GENERAL SKIN EXAM: dry skin Course Vital Signs: Vital signs: Vital Signs Temperature 98.2 F 02/13/22 09:19 Pulse Rate 97 02/13/22 11:28 Respiratory Rate 16 02/13/22 11:28 Blood Pressure 110/71 02/13/22 11:28 Pulse Oximetry 97 02/13/22 11:28 Oxygen Delivery Me thod 02/13/22 09:19 MDM - Nausea/Vomiting/Diarrhea Medical Decision Making Patient is a 41-year-old female comes in the ED with fatigue and malaise after viral GI symptoms. She was having nausea, diarrhea, body aches fevers and chills over the past week but all the symptoms have since resolved. She notices a lot of fatigue and feels dehydrated. Patient's pulse was elevated at 120 and the rest of her vitals are stable. She appears nontoxic in no acute distress or pain. She has some dry oral mucous membranes but rest of exam is benign. All labs were unremarkable. Patient was given 1 L of IV fluids and some Reglan and her symptoms improved and she is feeling a lot better. She was stable for discharge home and diagnosed with fatigue and dehydration due to her viral GI symptoms last week. She was discharged home with a prescription for some Zofran. Told to follow-up with her PCP within the next week for reevaluation. Return to ED precautions given. Patient understood and agreed with plan. Lab Data I reviewed the patient's lab results. : 02/13/22 09:02/13/22: Laboratory Results WBC 4.1 10^3/uL (4.0-10.0) 02/13/22: RBC 4.79 10^6/uL (4.1-5.3) 02/13/22: Hgb 14.3 g/dL (11.5-15.3) 02/13/22: Hct 43.0 % (37.0-47.0) 02/13/22: MCV 89.8 fl (81-99) 02/13/22: MCH 29.9 pg (28.0-34.0) 02/13/22: MCHC 33.3 g/dL (30.0-36.0) 02/13/22: RDW 11.6 % (12.1-15.1) L 02/13/22: Plt Count 214 10^3/cmm (130-400) 02/13/22: MPV 10.1 fL (7.4-10.4) 02/13/22: Neut % (Auto) 54.5 % 02/13/22: Lymph % (Auto) 35.4 % 02/13/22: Saunders % (Auto) 7.7 % 02/13/22: Eos % (Auto) 1.5 % 02/13/22 Baso % (Auto) 0.7 % 02/13/22 Neut # (Auto) 2.25 10^3/uL (1.8-7.7) 02/13/22: Lymph # (Auto) 1.5 10^3/uL (0.8-4.8) 11/15/22 09:31 Saunders # (Auto) 0.3 10^3/uL (0.2-0.9) 02/13/22 09:31 Eos # (Auto) 0.1 10^3/uL (0.0-0.8) 02/13/22 09:31 Baso # (Auto) 0.0 10^3/uL (0.0-0.1) 02/13/22 09:31 Nucleated RBC % (auto) 0 % 02/13/22 09: Nucleated RBCs # 0.0 /100WBC 02/13/22 09:31 Sodium 142 mmol/L (136-145) 02/13/22 09:31 Potassium 3.8 mmol/L (3.5-5.1) 02/13/22 09: Chloride 108 mmol/L (98-107) H 02/13/22 09:31 Carbon Dioxide 22 mmol/L (22-29) 02/13/22 09:31 Anion Gap 15.8 (5-19) 02/13/22 09:31 BUN 6 mg/dL (6-20) 02/13/22 09:31 Creatinine 0.6 mg/dL (0.5-0.9) 02/13/22 09:31 GFR Calculation 110.7 mL/min (90-130) 02/13/22 09:31 Glucose 111 mg/dL (65-115) 02/13/22 09:31 Calculated Osmolality 292 mOsm/kg (285-295) 02/13/22 09:31 Calcium 9.5 mg/dL (8.5-10.5) 02/13/22 09:31 Total Bilirubin 0.5 mg/dL (0.15-1.2) 02/13/22 09:31 AST 19 U/L (0-32) 02/13/22 09:31 ALT 16 U/L (0-33) 02/13/22 09:31 Alkaline Phosphatase 70 U/L (35-105) 02/13/22 09:31 Total Protein 7.1 g/dL (6.6-8.7) 02/13/22 09:31 Albumin 4.4 g/dL (3.5-5.2) 02/13/22 09:31 Globulin 2.7 g/dL (1.3-4.6) 02/13/22 09:31 Lipase 19 U/L (13-60) 02/13/22 09:31 HCG, Qual Negative (Negative) 02/13/22 09:31 Urine Color Yellow (Yellow) 02/13/22 09:57 Urine Appearance Clear (CLEAR) 02/13/22 09:57 Urine pH 8 (5-7) H 02/13/22 09:57 Ur Specific [place] 1.015 (1.005-1.030) 02/13/22 09:57 Urine Protein Neg (Negative) 02/13/22 09:57 Urine Glucose (UA) Norm (Normal) 02/13/22 09:57 Urine Ketones Negative (Negative) 02/13/22 09:57 Urine Blood Neg (Negative) 02/13/22 09:57 Urine Nitrate Negative (Negative) 02/13/22 09:57 Urine Bilirubin Neg (Negative) 02/13/22 09:57 Prot Sulfosalicylic Acd Negative (Negative) 02/13/22 09:57 Urine Urobilinogen Norm mg/dL (Negative) 02/13/22 09:57 Ur Leukocyte Esterase Negative (Negative) 02/13/22 09:57 Discharge Plan Discharge Patient Disposition: Home Clinical Impression: Dehydration determined by examination Fatigue Qualifiers: Fatigue type: unspecified Qualified Code(s): R53.83 - Other fatigue Condition: Stable Prescriptions: New ondansetron 4 mg tablet,disintegrating 4 mg PO Q8H PRN (Reason: nausea and vomiting) Qty: 20 0RF No Action Juice Plus Tabs 1 tab PO QAM Zofran 4 mg tablet 4 mg PO Q6H PRN (Reason: nausea and vomiting) Qty: 15 0RF clonazepam 0.5 mg tablet See Rx Instructions .ROUTE .COMPLEX Rx Instructions: 2 TABS (1MG) PO QAM, 1 TAB (0.5MG) PO @NOON AND 1 TAB (0.5MG) @ BEDTIME acetaminophen [Tylenol Ex Str Rapid Release] 500 mg Tablet 1,000 mg PO Q6H PRN (Reason: pain/fever) Discharge Orders: Discharge ED (Routine); Ordered 02/13/22 Ordered By: Juve Arana Referrals: Francois Bean [Primary Care Provider] - Discharge Diet: Regular Discharge Activity: Increase activity as tolerated Activity Restrictions/Additional Instructions: Follow-up with medical provider as directed. Take medications as prescribed. Return to the ER or your medical provider if condition worsens. Please read and understand discharge instructions. Thank you for choosing [facility] for your healthcare needs today. Please realize this is an emergency room and that we are providing you with a medical screening exam and this may not be complete and all inclusive of all the testing and or work up that you may need to determine your ailment or severity of your illness. It is very important that you follow up as instructed or that you return to the Emergency Department should you have concerns or if your condition changes or worsens in any way. Stand Alone Forms: Work/School Release Coding Level of Care Code ED Rn Quality for Chg Fwd Exam Comprehensive Documented by User: Seng Anaya DO 02/14/22 06:44 HPI - Nausea/Vomiting/Diarrhea General: Chief complaint: Nausea/Vomiting/Diarrhea Stated complaint: weightloss,n/v/d Time Seen by Provider: 02/13/22 09:17 [facility] ED PFSH: Medical History Anxiety Rheumatoid arthritis Surgical History No pertinent past surgical history Social History Smoking and tobacco status: former smoker History of recent travel: No Course Vital Signs: Vital signs: Vital Signs Temperature 98.2 F 02/13/22 09:19 Pulse Rate 97 02/13/22 11:28 Respiratory Rate 16 02/13/22 11:28 Blood Pressure 110/71 02/13/22 11:28 Pulse Oximetry 97 02/13/22 11:28 Oxygen Delivery Me thod 02/13/22 09:19 MDM - Nausea/Vomiting/Diarrhea Medical Decision Making Patient is a 41-year-old female comes in the ED with fatigue and malaise after viral GI symptoms. She was having nausea, diarrhea, body aches fevers and chills over the past week but all the symptoms have since resolved. She notices a lot of fatigue and feels dehydrated. Patient's pulse was elevated at 120 and the rest of her vitals are stable. She appears nontoxic in no acute distress or pain. She has some dry oral mucous membranes but rest of exam is benign. All labs were unremarkable. Patient was given 1 L of IV fluids and some Reglan and her symptoms improved and she is feeling a lot better. She was stable for discharge home and diagnosed with fatigue and dehydration due to her viral GI symptoms last week. She was discharged home with a prescription for some Zofran. Told to follow-up with her PCP within the next week for reevaluation. Return to ED precautions given. Patient understood and agreed with plan. Chart reviewed and patient discussed with midlevel. Agree with assessment and plan. Lab Data : 02/13/22 09:31 02/13/22: Laboratory Results WBC 4.1 10^3/uL (4.0-10.0) 02/13/22: RBC 4.79 10^6/uL (4.1-5.3) 02/13/22: Hgb 14.3 g/dL (11.5-15.3) 02/13/22: Hct 43.0 % (37.0-47.0) 02/13/22: MCV 89.8 fl (81-99) 02/13/22: MCH 29.9 pg (28.0-34.0) 02/13/22: MCHC 33.3 g/dL (30.0-36.0) 02/13/22: RDW 11.6 % (12.1-15.1) L 02/13/22: Plt Count 214 10^3/cmm (130-400) 02/13/22: MPV 10.1 fL (7.4-10.4) 02/13/22: Neut % (Auto) 54.5 % 02/13/22: Lymph % (Auto) 35.4 % 02/13/22: Saunders % (Auto) 7.7 % 02/13/22: Eos % (Auto) 1.5 % 11/15/22 09:31 Baso % (Auto) 0.7 % 02/13/22 09:31 Neut # (Auto) 2.25 10^3/uL (1.8-7.7) 02/13/22 09:31 Lymph # (Auto) 1.5 10^3/uL (0.8-4.8) 02/13/22 09:31 Saunders # (Auto) 0.3 10^3/uL (0.2-0.9) 02/13/22 09:31 Eos # (Auto) 0.1 10^3/uL (0.0-0.8) 02/13/22 09:31 Baso # (Auto) 0.0 10^3/uL (0.0-0.1) 02/13/22 09:31 Nucleated RBC % (auto) 0 % 02/13/22 09:31 Nucleated RBCs # 0.0 /100WBC 02/13/22 09:31 Sodium 142 mmol/L (136-145) 02/13/22 09:31 Potassium 3.8 mmol/L (3.5-5.1) 02/13/22 09:31 Chloride 108 mmol/L (98-107) H 02/13/22 09:31 Carbon Dioxide 22 mmol/L (22-29) 02/13/22 09:31 Anion Gap 15.8 (5-19) 02/13/22 09:31 BUN 6 mg/dL (6-20) 02/13/22 09:31 Creatinine 0.6 mg/dL (0.5-0.9) 02/13/22 09:31 GFR Calculation 110.7 mL/min (90-130) 02/13/22 09:31 Glucose 111 mg/dL (65-115) 02/13/22 09:31 Calculated Osmolality 292 mOsm/kg (285-295) 02/13/22 09:31 Calcium 9.5 mg/dL (8.5-10.5) 02/13/22 09:31 Total Bilirubin 0.5 mg/dL (0.15-1.2) 02/13/22 09:31 AST 19 U/L (0-32) 02/13/22 09:31 ALT 16 U/L (0-33) 02/13/22 09:31 Alkaline Phosphatase 70 U/L (35-105) 02/13/22 09:31 Total Protein 7.1 g/dL (6.6-8.7) 02/13/22 09:31 Albumin 4.4 g/dL (3.5-5.2) 02/13/22 09:31 Globulin 2.7 g/dL (1.3-4.6) 02/13/22 09:31 Lipase 19 U/L (13-60) 02/13/22 09:31 HCG, Qual Negative (Negative) 02/13/22 09:31 Urine Color Yellow (Yellow) 02/13/22 09:57 Urine Appearance Clear (CLEAR) 02/13/22 09:57 Urine pH 8 (5-7) H 02/13/22 09:57 Ur Specific [place] 1.015 (1.005-1.030) 02/13/22 09:57 Urine Protein Neg (Negative) 02/13/22 09:57 Urine Glucose (UA) Norm (Normal) 02/13/22 09:57 Urine Ketones Negative (Negative) 02/13/22 09:57 Urine Blood Neg (Negative) 02/13/22 09:57 Urine Nitrate Negative (Negative) 02/13/22 09:57 Urine Bilirubin Neg (Negative) 02/13/22 09:57 Prot Sulfosalicylic Acd Negative (Negative) 02/13/22 09:57 Urine Urobilinogen Norm mg/dL (Negative) 02/13/22 09:57 Ur Leukocyte Esterase Negative (Negative) 02/13/22 09:57 Discharge Plan Discharge Patient Disposition: Home Clinical Impression: Dehydration determined by examination Fatigue Qualifiers: Fatigue type: unspecified Qualified Code(s): R53.83 - Other fatigue Condition: Stable Prescriptions: New ondansetron 4 mg tablet,disintegrating 4 mg PO Q8H PRN (Reason: nausea and vomiting) Qty: 20 0RF No Action Juice Plus Tabs 1 tab PO QAM Zofran 4 mg tablet 4 mg PO Q6H PRN (Reason: nausea and vomiting) Qty: 15 0RF clonazepam 0.5 mg tablet See Rx Instructions .ROUTE .COMPLEX Rx Instructions: 2 TABS (1MG) PO QAM, 1 TAB (0.5MG) PO @NOON AND 1 TAB (0.5MG) @ BEDTIME acetaminophen [Tylenol Ex Str Rapid Release] 500 mg Tablet 1,000 mg PO Q6H PRN (Reason: pain/fever) Discharge Orders: Discharge ED (Routine); Ordered 02/13/22 Ordered By: Juve Arana Referrals: Francois Bean [Primary Care Provider] - Discharge Diet: Regular Discharge Activity: Increase activity as tolerated Activity Restrictions/Additional Instructions: Follow-up with medical provider as directed. Take medications as prescribed. Return to the ER or your medical provider if condition worsens. Please read and understand discharge instructions. Thank you for choosing [facility] for your healthcare needs today. Please realize this is an emergency room and that we are providing you with a medical screening exam and this may not be complete and all inclusive of all the testing and or work up that you may need to determine your ailment or severity of your illness. It is very important that you follow up as instructed or that you return to the Emergency Department should you have concerns or if your condition changes or worsens in any way. Stand Alone Forms: Work/School Release Coding Level of Care Code ED Rn Quality for Lorene Fwd Exam Comprehensive
[2022-02-13 09:49] LABS: Basophils % 0.7 %; Eosinophils # 0.1 10^3/uL (0.0-0.8); Eosinophils % 1.5 %; Hemoglobin 14.3 g/dL (11.5-15.3); Lymphocytes # 1.5 10^3/uL (0.8-4.8); Lymphocytes % 35.4 %; Mean Corpuscular HGB Conc 33.3 g/dL (30.0-36.0); Mean Corpuscular Hemoglobin 29.9 pg (28.0-34.0); Mean Corpuscular Volume 89.8 fl (81-99); Mean Platelet Volume 10.1 fL (7.4-10.4); Monocytes # 0.3 10^3/uL (0.2-0.9); Monocytes % 7.7 %; Neutrophils # 2.25 10^3/uL (1.8-7.7); Neutrophils % 54.5 %; Nucleated Red Blood Cells % 0 %; Platelet Count 214 10^3/cmm (130-400); Red Blood Count 4.79 10^6/uL (4.1-5.3); Red Cell Distribution Width 11.6 % (12.1-15.1); White Blood Count 4.1 10^3/uL (4.0-10.0)
[2022-02-13 09:51] VITALS: BP 128/76; PULSE 89; RESP 16; O2SAT 96
[2022-02-13] MEDS: sodium chloride 0.9% 1,000 ML 999 ML IV (09:54)
[2022-02-13] MEDS: metoclopramide 5 mg/mL SDV 2 mL 10 MG IVP (09:54)
[2022-02-13 10:05] LABS: Alanine Aminotransferase 16 U/L (0-33); Albumin Level 4.4 g/dL (3.5-5.2); Alkaline Phosphatase 70 U/L (35-105); Anion Gap 15.8 (5-19); Aspartate Amino Transferase 19 U/L (0-32); Blood Urea Nitrogen 6 mg/dL (6-20); Calcium 9.5 mg/dL (8.5-10.5); Carbon Dioxide 22 mmol/L (22-29); Chloride 108 mmol/L (98-107); Globulin 2.7 g/dL (1.3-4.6); Glomerular Filtration Rate 110.7 mL/min (90-130); Glucose 111 mg/dL (65-115); Lipase 19 U/L (13-60); Osmolality Calculated 292 mOsm/kg (285-295); Potassium 3.8 mmol/L (3.5-5.1); Sodium 142 mmol/L (136-145); Total Bilirubin 0.5 mg/dL (0.15-1.2); Total Protein 7.1 g/dL (6.6-8.7)
[2022-02-13 10:08] LABS: HCG, Serum Qual Negative (Negative)
[2022-02-13 10:53] LABS: Add Urine Microscopic? NO; Charge for UA Resulting for Rev
[2022-02-13 11:04] LABS: Bilirubin Urine Neg (Negative); Blood Urine Neg (Negative); Glucose Urine UA Norm (Normal); Ketones Urine Negative (Negative); Leukocyte Esterase Urine Negative (Negative); Nitrate Urine Negative (Negative); Protein Urine Neg (Negative); Specific Gravity, Urine 1.015 (1.005-1.030); Sulfosalicylic Acid Urine Negative (Negative); Urine Appearance Clear (CLEAR); Urine Color Yellow (Yellow); Urobilinogen Urine Norm (Negative); pH Urine 8 (5-7)
[2022-02-13 11:28] VITALS: BP 110/71; PULSE 97; RESP 16; O2SAT 97
== END 2022-02-13 11:39 | disposition home or self-care (01) ==
PROVIDERS: Emergency Provider Physician Assistant; PCP Family Medicine
DX: R53.83 Other fatigue (principal); E86.0 Dehydration; Z87.891 Personal history of nicotine dependence
CPT/HCPCS: 80053; 81003; 83690; 84703; 85025; 96361; 96374; 99284; J2765; J7030

== ENCOUNTER → 2022-03-28 09:20 | Outpatient (BNVA) | payer OTHER, SELFPAY | PROVIDERS: PCP Family Medicine; Visit Provider Nurse Practitioner Family | DX: R68.89 Other general symptoms and signs (principal); J02.9 Acute pharyngitis, unspecified | CPT/HCPCS: 87400; 87880 ==

== ENCOUNTER 2023-10-21 16:56 | Emergency (ER) | payer OTHER, SELFPAY ==
[2023-10-21 17:01] VITALS: BP 125/84; PULSE 136; TEMP 36.9; O2SAT 98; BMI 21.9
[2023-10-21 17:06] VITALS: BP 167/87; PULSE 97; O2SAT 97
[2023-10-21 17:36] VITALS: PULSE 94; O2SAT 95
[2023-10-21 17:53] LABS: Basophils % 0.6 %; Eosinophils % 0.4 %; Hematocrit 44.7 % (36-47); Lymphocytes % 29.3 %; Mean Corpuscular HGB Conc 33.3 g/dL (30-55); Mean Corpuscular Hemoglobin 29.6 pg (27-33); Mean Corpuscular Volume 88.7 fl (85-98); Mean Platelet Volume 10.5 fL (7.4-10.4); Monocytes # 0.5 10^3/uL (0.2-0.9); Monocytes % 7.8 %; Neutrophils # 4.22 10^3/uL (1.8-7.7); Neutrophils % 61.8 %; Nucleated Red Blood Cells % 0 %; Platelet Count 190 10^3/cmm (157-399); Red Blood Count 5.04 10^6/uL (3.85-5.65); Red Cell Distribution Width 11.7 % (12.1-15.1); White Blood Count 6.83 10^3/uL (3.29-11.43)
--- NOTE | 2023-10-21 18:04 | ED_ITS ---
HPI - General Adult 2 General: Chief complaint: General Medical Stated complaint: fever, dehydration Time Seen by Provider: 10/21/23 17:33 Source: patient Mode of arrival: ambulatory Limitations: no limitations History of Present Illness: Patient is a 43-year-old female who presents to the emergency department for 1 week of intermittent fevers. Patient also has been nauseous and been having diarrhea, states that she works at an [employer] facility and multiple other staff members have been sick. Was seen at [facility] in [place] few days ago, was given fluids and had normal workup at that time. States that ever since that she has just been feeling more more sick, is now unable to keep anything down and states that she feels very dehydrated. No pertinent medical history to report. She denies any burning with urination, blood in her urine, vomiting, bloody stools, or other concerning symptoms at this time. Further denies any breathing difficulties. States that she has been controlling her fever at home with Tylenol, she is currently afebrile in triage today. MD complaint: Intermittent fevers for a week Onset (ago): week(s) Severity: moderate Pain Consistency: constant Relieving factors: medication Associated symptoms: Reports nausea; Deny chest pain, diaphoresis, dyspnea, headache(s), rash, palpitations or vomiting Review of Systems 2 General: Reports: 10 or more systems reviewed and unremarkable except in HPI and below Const: Reports: fever(s), chills, body aches and change in appetite; Denies: change in weight or diaphoresis ENMT: Denies: throat pain or hoarseness Card: Denies: chest pain, palpitations or lightheadedness Resp: Denies: dyspnea, productive cough or wheezing GI: Reports: nausea and diarrhea; Denies: abdominal pain, vomiting, constipation, bloating, change in stool character or hematochezia : Denies: flank pain, difficulty voiding, dysuria, urinary frequency or urinary urgency Musc: Denies: neck pain or back pain Skin/Breast: Denies: rash or new lesions Neuro: Denies: headache(s) or dizziness PFSH ED 2 PFSH: Medical History Anxiety Rheumatoid arthritis Surgical History No pertinent past surgical history Social History Smoking and tobacco/nicotine status: former use of tobacco/nicotine Physical Exam 2 Const: COMMON NORMALS: no acute distress, average body habitus, patient oriented x3, no limitations, healthy appearing, alert and well nourished G ENERAL APPEARANCE: cooperative and comfortable ORIENTATION/CONSCIOUSNESS: Yes awake HENMT: COMMON NORMALS: normocephalic, atraumatic, hearing grossly normal bilaterally, external ears normal, Normal external nose present, Normal nasal mucous membranes and turbinates present and moist oral mucous membranes HEAD & SCALP: normocephalic and atraumatic NOSE: Normal external nose present and Normal nasal mucous membranes and turbinates present EXTERNAL EAR: Yes external ears normal Eye: COMMON NORMALS: Equal, round and reactive pupils present, EOMs intact bilaterally, conjunctivae normal and normal visual taylor by confrontation C ONJUNCTIVA: Yes conjunctivae normal PUPIL: Yes Equal, round and reactive pupils present Neck/C-Spine: COMMON NORMALS: full ROM, supple, no meningeal signs and no JVD Resp: COMMON NORMALS: normal respiratory effort, No retractions, No use of accessory muscles and clear to auscultation bilaterally AUSCULTATION: clear to auscultation bilaterally, no crackles, no rales, no rhonchi and no wheezes Cardio: COMMON NORMALS: no JVD, regular rate, regular rhythm, S1 normal heart sound present, S2 normal heart sound present, No gallops present (Cardio), No clicks present (Cardio), No murmurs present (Cardio), No rub (Cardio) and Peripheral pulses 2+ throughout RATE: regular rate RHYTHM: regular rhythm HEART SOUNDS: S1 normal heart sound present and S2 normal heart sound present PERIPHERAL PULSES: Peripheral pulses 2+ throughout GI: COMMON NORMALS: Normal to inspection, nondistended, normoactive bowel sounds present, Soft to palpation, non-tender, No hepatosplenomegaly present and no masses AUSCULTATION: Yes normoactive bowel sounds PALPATION: Yes Soft to palpation, No Guarding due to palpation present (GI), No Rigid due to palpation and Yes No hepatosplenomegaly present RECTAL EXAM: deferred : COMMON NORMALS: Yes no CVA tenderness BLADDER/KIDNEY EXAM: Yes no CVA tenderness Back/Pelvis: COMMON NORMALS: no CVA tenderness Extremity: COMMON NORMALS: normal to inspection and full ROM Neuro: COMMON NORMALS: patient oriented x3, moves all extremities, no focal motor deficits and no sensory deficits noted SENSORIUM/ORIENTATION: Yes alert MENINGEAL SIGNS: Yes no meningeal signs Psych: COMMON NORMALS: mental status grossly normal, cooperative and speech normal SPEECH: Yes normal speech Skin: COMMON NORMALS: no rashes or lesions noted GENERAL SKIN EXAM: no rashes or lesions noted Course 2 Vital Signs: Vital signs: Vital Signs Temperature 98.4 F 10/21/23 17:01 Pulse Rate 111 H 10/21/23 18:06 Blood Pressure 118/78 10/21/23 18:36 Pulse Oximetry 98 10/21/23 18:06 Oxygen Delivery Me thod Room Air 10/21/23 18:06 MDM - General Adult Medical Decision Making Patient presented for a week of intermittent fevers and feeling ill. Was initially seen at [facility], had a normal workup and was treated with fluids. States she has been getting worse since. Her blood work today was normal. Urinalysis revealed signs of urinary tract infection. 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 She does report significant improvement of her symptoms after receiving a liter of fluids and Reglan, and will send home with nausea medications and antibiotics for her urinary tract infection. All other questions and concerns addressed at this time and strict return precautions given. Lab Data 10/21/23 17:44 10/21/23 17:44 Laboratory Results WBC 6.83 10^3/uL (3.29-11.43) 10/21/23 17:44 RBC 5.04 10^6/uL (3.85-5.65) 10/21/23 17:44 Hgb 14.90 g/dL (11.27-16.99) 10/21/23 17:44 Hct 44.7 % (36-47) 10/21/23 17:44 MCV 88.7 fl (85-98) 10/21/23 17:44 MCH 29.6 pg (27-33) 10/21/23 17:44 MCHC 33.3 g/dL (30-55) 10/21/23 17:44 RDW 11.7 % (12.1-15.1) L 10/21/23 17:44 Plt Count 190 10^3/cmm (157-399) 10/21/23 17:44 MPV 10.5 fL (7.4-10.4) H 10/21/23 17:44 Neut % (Auto) 61.8 % 10/21/23 17:44 Lymph % (Auto) 29.3 % 10/21/23 17:44 Garza % (Auto) 7.8 % 10/21/23 17:44 Eos % (Auto) 0.4 % 10/21/23 17:44 Baso % (Auto) 0.6 % 10/21/23 17:44 Neut # (Auto) 4.22 10^3/uL (1.8-7.7) 10/21/23 17:44 Lymph # (Auto) 2.0 10^3/uL (0.8-4.8) 10/21/23 17:44 Garza # (Auto) 0.5 10^3/uL (0.2-0.9) 10/21/23 17:44 Eos # (Auto) 0.0 10^3/uL (0.0-0.8) 10/21/23 17:44 Baso # (Auto) 0.0 10^3/uL (0.0-0.1) 10/21/23 17:44 Nucleated RBC % (auto) 0 % 10/21/23 17:44 Nucleated RBCs # 0.0 /100WBC 10/21/23 17:44 Sodium 138 mmol/L (136-145) 10/21/23 17:44 Potassium 4.0 mmol/L (3.5-5.1) 10/21/23 17:44 Chloride 103 mmol/L (98-107) 10/21/23 17:44 Carbon Dioxide 21 mmol/L (22-29) L 10/21/23 17:44 Anion Gap 18.0 (5-19) 10/21/23 17:44 BUN 7 mg/dL (6-20) 10/21/23 17:44 Creatinine 0.8 mg/dL (0.5-0.9) 10/21/23 17:44 GFR Calculation 78.7 mL/min (90-130) L 10/21/23 17:44 Glucose 108 mg/dL (65-115) 10/21/23 17:44 Calculated Osmolality 285 mOsm/kg (285-295) 10/21/23 17:44 Calcium 9.6 mg/dL (8.5-10.5) 10/21/23 17:44 Total Bilirubin 0.5 mg/dL (0.15-1.2) 10/21/23 17:44 AST 20 U/L (0-32) 10/21/23 17:44 ALT 13 U/L (0-33) 10/21/23 17:44 Alkaline Phosphatase 70 U/L (35-105) 10/21/23 17:44 Total Protein 7.3 g/dL (6.6-8.7) 10/21/23 17:44 Albumin 4.8 g/dL (3.5-5.2) 10/21/23 17:44 Globulin 2.5 g/dL (1.3-4.6) 10/21/23 17:44 HCG, Qual Negative (Negative) 10/21/23 17:44 Urine Color Yellow (Yellow) 10/21/23 19:28 Urine Appearance Slightly cloudy (CLEAR) 10/21/23 19:28 Urine pH 5 (5-7) 10/21/23 19:28 Ur Specific Hancock 1.025 (1.005-1.030) 10/21/23 19:28 Urine Protein Trace (Negative) 10/21/23 19:28 Urine Glucose (UA) Norm (Normal) 10/21/23 19:28 Urine Ketones 2+ (Negative) H 10/21/23 19:28 Urine Blood Trace (Negative) H 10/21/23 19:28 Urine Nitrate Negative (Negative) 10/21/23 19:28 Urine Bilirubin Neg (Negative) 10/21/23 19:28 Urine Urobilinogen Norm mg/dL (Negative) 10/21/23 19:28 Ur Leukocyte Esterase 2+ (Negative) H 10/21/23 19:28 Urine RBC 5-10 /hpf (0-2) H 10/21/23 19:28 Urine WBC 5-10 /hpf (0-5) H 10/21/23 19:28 Ur Squamous Epith Cells 10-15 /hpf (0-5) H 10/21/23 19:28 Amorphous Sediment Not Reportable 10/21/23 19:28 Urine Bacteria 1+ /hpf (NONE) H 10/21/23 19:28 Urine Mucus 3+ /hpf 10/21/23 19:28 Influenza Type A Ag negative (Negative) 10/21/23 18:34 Influenza Type B Ag negative (Negative) 10/21/23 18:34 SARS-CoV-2 Ag (Rapid) negative (Negative) 10/21/23 18:34 No radiology studies performed this visit Discharge Plan Discharge Patient Disposition: Home Clinical Impression: Urinary tract infection, Dehydration Condition: Stable Prescriptions: New ondansetron HCl 4 mg tablet 4 mg PO Q8H Qty: 30 0RF cefdinir 300 mg capsule 300 mg PO BID 7 Days Qty: 14 0RF No Action Juice Plus Tabs 1 tab PO QAM Zofran 4 mg tablet 4 mg PO Q6H PRN (Reason: nausea and vomiting) Qty: 15 0RF clonazepam 0.5 mg tablet See Rx Instructions .ROUTE .COMPLEX Rx Instructions: 2 TABS (1MG) PO QAM, 1 TAB (0.5MG) PO @NOON AND 1 TAB (0.5MG) @ BEDTIME acetaminophen [Tylenol Ex Str Rapid Release] 500 mg Tablet 1,000 mg PO Q6H PRN (Reason: pain/fever) ondansetron 4 mg tablet,disintegrating 4 mg PO Q8H PRN (Reason: nausea and vomiting) Qty: 20 0RF Discharge Orders: Discharge ED (Routine); Ordered 10/21/23 Ordered By: Hussein Anderson Referrals: Francois Bean [Primary Care Provider] - Discharge Diet: As Directed Discharge Activity: Increase activity as tolerated Patient Instructions: Dehydration (ED), Urinary Tract Infection in Women (ED) Activity Restrictions/Additional Instructions: Plenty of fluids. Take antibiotics as prescribed. Zofran for nausea. Follow- up with your primary care provider. Return with any new or worsening symptoms. Coding Level of Care Code ED [place] for Lorene Musa
[2023-10-21 18:06] VITALS: BP 137/80; PULSE 111; O2SAT 98
[2023-10-21 18:15] LABS: Alanine Aminotransferase 13 U/L (0-33); Albumin Level 4.8 g/dL (3.5-5.2); Alkaline Phosphatase 70 U/L (35-105); Blood Urea Nitrogen 7 mg/dL (6-20); Calcium 9.6 mg/dL (8.5-10.5); Carbon Dioxide 21 mmol/L (22-29); Chloride 103 mmol/L (98-107); Creatinine Clr Calc Pharmacy 81.0497; Globulin 2.5 g/dL (1.3-4.6); Glomerular Filtration Rate 78.7 mL/min (90-130); Glucose 108 mg/dL (65-115); HCG, Serum Qual Negative (Negative); Osmolality Calculated 285 mOsm/kg (285-295); Sodium 138 mmol/L (136-145); Total Bilirubin 0.5 mg/dL (0.15-1.2); Total Protein 7.3 g/dL (6.6-8.7)
[2023-10-21 18:17] LABS: Aspartate Amino Transferase 20 U/L (0-32)
[2023-10-21 18:36] VITALS: BP 118/78
[2023-10-21] MEDS: sodium chloride 0.9% 1,000 ML 999 ML IV (18:43)
[2023-10-21] MEDS: metoclopramide 5 mg/mL SDV 2 mL 10 MG IVP (18:45)
[2023-10-21 19:07] LABS: SARS Covid-2 Antigen negative (Negative)
[2023-10-21 19:08] LABS: Influenza A by IFA negative (Negative); Influenza B by IFA negative (Negative)
[2023-10-21 19:44] LABS: Bilirubin Urine Neg (Negative); Blood Urine Trace (Negative); Glucose Urine UA Norm (Normal); Ketones Urine 2+ (Negative); Nitrate Urine Negative (Negative); Protein Urine Trace (Negative); Specific Gravity, Urine 1.025 (1.005-1.030); Urine Appearance Slightly Cloudy (CLEAR); Urine Color Yellow (Yellow); pH Urine 5 (5-7)
[2023-10-21 19:45] LABS: Add Urine Culture? No; Add Urine Microscopic? YES; Bacteria Urine 1+ /hpf; Leukocyte Esterase Urine 2+ (Negative); Mucus Urine 3+ /hpf; Urobilinogen Urine Norm (Negative)
[2023-10-21] MEDS: cefdinir 300 MG CAPSULE PO (20:04)
[2023-10-21 20:10] VITALS: PULSE 89; RESP 16; O2SAT 99
== END 2023-10-21 20:11 | disposition home or self-care (01) ==
PROVIDERS: Emergency Medicine; Emergency Provider Physician Assistant; PCP Family Medicine
DX: N39.0 Urinary tract infection, site not specified (principal); E86.0 Dehydration; Z87.891 Personal history of nicotine dependence
CPT/HCPCS: 36415; 80053; 81001; 84703; 85025; 87426; 87804; 96361; 96374; 99284; J2765; J7030

== ENCOUNTER 2024-10-08 20:24 | Emergency (ER) | payer SELFPAY ==
--- OUTSIDE RECORDS SUMMARY | 2024-10-07 23:40 | XMS_ITS | Encounter Summary ---
Author Organization [facility] Address [address] [place] [address] Care Team Providers Care Job Press Operator Name Role Phone Francois Bean MD Primary Care Provider [phone] Reason for Visit * Reason Comments Headache Encounter Details Date Type Department Care Team (Late st Contact Info) Description 10/07/2024 11:40 PM CDT - 10/08/2024 1:24 AM CDT Emergency [facility] Emergency Medicine [address] [facility] [address] [place] [phone] Salty Panda MD [address] [place] [address] [place] [address] Atypical migraine (Primary Dx) Discharge Disposition: Home or Self Care Social History Tobacco Use Types Packs/Day Years Used Date Smoking Tobacco: Former Cigarettes Q uit: 11/21/2016 Smokeless Tobacco: Never Alcohol Use Standard Drinks/Week Comments No 0 (1 standard drink = 0.6 oz pur e alcohol) Feeling Safe Answer Date Recorded Are you in a relationship wi th someone who hurts you emotionally and/or physically? 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 Gender Identity Not on file Sexual Orientation Not on file documented as of this encounter Last Filed Vital Signs Vital Sign Reading Time Taken Comments Blood Pressure 115/75 10/08/2024 1:15 AM CDT Pulse 73 10/08/2024 1:15 AM CDT Temperature 36.8 C (98.3 F) 10/07/2024 11:41 PM CDT Respiratory Rate 15 10/08/2024 1:15 AM CDT Oxygen Saturation 100% 10/08/2024 1:15 AM CDT Inhaled Oxygen Concentration - - Weight 53.7 kg (118 lb 6.4 oz) 10/07/2024 11:41 PM CDT Height 162.6 cm (5' 4 ) 10/07/2024 11:41 PM CDT Body Mass Index 20.32 10/07/2024 11:41 PM CDT documented in this encounter Discharge Instructions * Attachments The following attachments cannot be sent through Care Everywhere. * Migraine Headache (Afghan) documented in this encounter Medications at Time of Discharge albuterol sulfate HFA 90 mcg/actuation aerosol inhalerIndications :Mild intermittent reactive airway disease without complication Take 2 Puffs by inhalation every 4 hours as needed for Shortness of Breath. 18 Gram 2 10/06/2024 clonazePAM (KlonoPIN) 1 mg tabletIndications: ANIVAL (generalized anxiety disorder) TAKE ONE TABLET BY MOUTH IN THE MORNING AND 1/2 TABLET IN THE AFTERNOON AND 1/2 TABLET IN THE EVENING NEEDED FOR ANXIETY 60 Tablet 5 09/16/2024 cyproheptadine (PERIACTIN) 4 mg tabletIndications: Appetite loss Take 1 Tablet (4 mg) by mouth 2 times daily. 180 Tablet 3 09/16/2024 albuterol (PROVENTIL,VENTOLI N) 2.5 mg /3 mL (0.083 %) Solution for Nebulization Take 3 mL (2.5 mg) by inhalation every 6 hours as needed for Shortness of Breath. 90 mL 2 08/17/2024 nebulizerIndicatio ns:Wheezing Length of need 99 months Nebulizer with compressor, Kit: Disposable Nebulizer Kit, 2 per month, filters , areosol mask: Yes. Name of Medication: albuterol 1 Each 06/08/2024 documented as of this encounter Progress Notes * Dipak Mccall RCP - 10/08/2024 12:26 AM CDT EKG completed. Results given to and scanned into [employer]. documented in this encounter ED Notes * Delores Beverly RN - 10/07/2024 11:46 PM CDT Radha Higuera 44 y.o. female, arrived to the ED via TRANSPORTATION: private vehicle for complaints of headache that started this am, states her left arm felt funny like it was being squeezed . Rates 4/10 constant pressure at the top of head. Chief Complaint Patient presents with Headache . Vitals taken, patient placed on monitor, clothing removed as needed per policy, privacy provided to patient. Respiratory: WDL - Regular rhythm, symmetrical chest expansion, no dyspnea , Cardiac/Circulatory: WDL - No numbness or tingling, no chest pain , Skin: WDL - Normal color for ethnicity, skin intact, patient is Alert and Oriented x4, pain scale: 4/10, findings; bleeding: without any bleeding noted. Behavior during evaluation: appropriate. Belongings secured, patient Weapons assessment: denied possession of any weapons or firearms at this time. Patient comforted, all questions answered to the best of the staff's ability, education performed, and left patient in the room with the call light in reach, bed in lowest position, wheels locked, side rails up,significant other at bedside. * Salty Panda MD - 10/07/2024 11:28 PM CDT HISTORY OF PRESENT ILLNESS Radha Higuera, a 44 y.o. female presents to the ED with a Chief Complaint of Headache Subjective This patient is a 44-year-old white female who presents to the emergency department stating that she woke up with a headache at 8:00 this morning. She heard her heart beating in her ears. Then she felt a squeezing sensation about the left arm and some numbness in the right foot. She felt somewhat faint. She went to work and was told that she should probably come to the emergency department for evaluation of possible stroke. Patient has a history of anxiety. Her symptoms have resolved except forsome mild head pressure at this time. REVIEW OF SYSTEMS Review of Systems Constitutional: Negative for activity change, appetite change, chills, diaphoresis, fatigue and fever. HENT: Negative for congestion, dental problem, ear pain, postnasal drip, rhinorrhea, sinus pressure, sore throat, tinnitus and trouble swallowing. Eyes: Negative for photophobia, pain, discharge, redness and visual disturbance. Respiratory: Negative for cough, chest tightness, shortness of breath and wheezing. Cardiovascular: Negative for chest pain, palpitations and leg swelling. Gastrointestinal: Negative for abdominal distention, abdominal pain, blood in stool, constipation, diarrhea, nausea and vomiting. Genitourinary: Negative for decreased urine volume, difficulty urinating, dyspareunia, dysuria, flank pain, frequency, hematuria, menstrual problem, pelvic pain, urgency, vaginal bleeding and vaginaldischarge. Musculoskeletal: Negative for arthralgias, back pain, gait problem, joint swelling, myalgias, neck pain and neck stiffness. Skin: Negative for color change and rash. Neurological: Positive for numbness and headaches. Negative for dizziness, seizures, speech difficulty, weakness and light-headedness. Hematological: Negative for adenopathy. Psychiatric/Behavioral: Negative for agitation, behavioral problems, confusion, dysphoric mood, hallucinations, self-injury, sleep disturbance and suicidal ideas. The patient is not nervous/anxious. All other systems reviewed and are negative. PAST MEDICAL HISTORY REVIEWED MEDICAL: Patient has a past medical history of Anxiety, Atrial fibrillation (CMS/HCC), COVID-19 virus detected, and Endometriosis. SURGICAL: Patient has a past surgical history that includes tympanostomy and ovarian cyst removal. FAMILY: Patient's family history includes Anxiety in her brother; Breast Cancer in her paternal cousin; Cancer in her paternal uncle; Cancer - Other in her paternal aunt and paternal grandfather; Glaucoma inher maternal grandmother and mother; Healthy in her brother; Melanoma in her father and paternal grandfather; Ovarian Cancer in her paternal grandmother; Unknown in her maternal grandfather. SOCIAL: reports that she quit smoking about 7 years ago. Her smoking use included cigarettes. She has neverused smokeless tobacco. She reports current drug use. Frequency: 1.00 time per week. Drug: Marijuana. She reports being sexually active. She reports that she does not drink alcohol. No history on file. Social History Other Topics Concern Not on file ALLERGIES Codeine, Morphine, and Penicillins HOME MEDICATIONS Discharge Medication List as of 10/08/2024 1:12 AM CONTINUE these medications which have NOT CHANGED Details albuterol sulfate HFA 90 mcg/actuation aerosol inhaler Take 2 Puffs by inhalation every 4 hours as needed for Shortness of Breath., Disp-18 Gram, R-2 clonazePAM (KlonoPIN) 1 mg tablet TAKE ONE TABLET BY MOUTH IN THE MORNING AND 1/2 TABLET IN THE AFTERNOON AND 1/2 TABLET IN THE EVENING NEEDED FOR ANXIETYDx: F41.1, last visit 09/16/2024Disp-60 Tablet, R-5 cyproheptadine (PERIACTIN) 4 mg tablet Take 1 Tablet (4 mg) by mouth 2 times daily., Disp-180 Tablet, R-3 albuterol (PROVENTIL,VENTOLIN) 2.5 mg /3 mL (0.083 %) Solution for Nebulization Take 3 mL (2.5 mg) by inhalation every 6 hours as needed for Shortness of Breath., Disp-90 mL, R-2 nebulizer Length of need 99 months Nebulizer with compressor, Kit: Disposable Nebulizer Kit, 2 per month, filters , areosol mask: Yes.Name of Medication: albuterol, Disp-1 Each, R-0 STOP taking these medications benzonatate (TESSALON) 200 mg capsule Comments: Reason for Stopping: ondansetron (ZOFRAN ODT) 4 mg Tablet, Rapid Dissolve Comments: Reason for Stopping: levalbuterol HFA (XOPENEX HFA) 45 mcg/Actuation HFA Aerosol Inhaler Comments: Reason for Stopping: mupirocin (BACTROBAN) 2 % Ointment Comments: Reason for Stopping: Objective PHYSICAL EXAM INITIAL VS BP: 122/72 (10/07/242340), Heart Rate: 88 bpm (10/07/242340), Resp: 18 (10/07/242340), Pulse: 80(10/08/24 0010), Temp: 98.3 ??F (36.8 ??C) (10/07/242340), Temp src: Temporal (10/07/242340), SpO2: 99 % (10/07/242340), Height: 5' 4 (162.6 cm) (10/07/242340), Weight: 53.7 kg (118 lb 6.4 oz) (10/07/242340), BMI (Calculated): 20.31 (10/07/242340) Patient's last menstrual period was 09/20/2024 (approximate). Physical Exam Vitals and nursing note reviewed. Constitutional: General: She is not in acute distress. Appearance: She is well-developed. HENT: Head: Normocephalic and atraumatic. Eyes: Conjunctiva/sclera: Conjunctivae normal. Pupils: Pupils are equal, round, and reactive to light. Cardiovascular: Rate and Rhythm: Normal rate and regular rhythm. Heart sounds: Normal heart sounds. Pulmonary: Effort: Pulmonary effort is normal. No respiratory distress. Breath sounds: Normal breath sounds. Abdominal: General: Bowel sounds are normal. Palpations: Abdomen is soft. Tenderness: There is no abdominal tenderness. Musculoskeletal: General: No tenderness. Normal range of motion. Cervical back: Normal range of motion and neck supple. Skin: General: Skin is warm and dry. Neurological: Mental Status: She is alert and oriented to person, place, and time. Cranial Nerves: No cranial nerve deficit. Psychiatric: Behavior: Behavior normal. Thought Content: Thought content normal. DIAGNOSTICS LAB: CBC WITH DIFFERENTIAL - Abnormal Result Value WBC 9.4 RBC 4.65 HEMOGLOBIN 13.7 HEMATOCRIT 40.6 MCV 87.3 MCH 29.5 MCHC 33.7 RDW 11.7 RDW-STDEV 37.2 PLATELETS 184 MPV 10.0 NEUTROPHILS 76 (*) LYMPHOCYTES 18 (*) MONOCYTES 5 EOSINOPHILS 0 (*) BASOPHILS 0 IMMATURE GRANULOCYTES 0 NEUTROPHIL ABSOLUTE 7.13 (*) LYMPHOCYTE ABSOLUTE 1.69 MONOCYTE ABSOLUTE 0.48 (*) EOSINOPHIL ABSOLUTE 0.03 (*) BASOPHILS ABSOLUTE 0.03 IMMATURE GRANULOCYTES ABSOLUTE 0.02 COMPREHENSIVE METABOLIC PANEL - Abnormal SODIUM 140 POTASSIUM 3.8 CHLORIDE 106 CO2 21 (*) CALCIUM 9.6 BUN 11 CREATININE 0.83 GLUCOSE 99 TOTAL PROTEIN 6.6 ALBUMIN 4.3 BILIRUBIN TOTAL 0.2 ALKALINE PHOSPHATASE 65 AST 23 ALT 24 GFR >60 ANION GAP 13 PROTIME-INR - Normal PROTIME 12.9 INR 1.0 PTT - Normal PTT 29.6 TROPONIN BASELINE, 5TH GEN - Normal TROPONIN T, BASELINE 5TH GEN <6 BRAIN NATRIURETIC PEPTIDE, BNP OR PROBNP - Normal PROBNP, N TERMINAL 85 TROPONIN 6 HR, 5TH GEN TROPONIN 2 HR, 5TH GEN RADIOLOGY: No orders to display EKG: PROCEDURES Procedures MEDICAL DECISION MAKING AND PLAN OF CARE Medical Decision Making EKG revealed normal sinus rhythm with no ST segment abnormalities. CBC and CMP normal. Coags normal. BNP was 85. Troponin less than 6. Head CT was read by the radiologist as normal. Patient's symptoms may be secondary to an atypical migraine. I discussed this with her. This is not a stroke she was reassured. She did not want any pain medication for her headache. She states she will just take someTylenol at home. I recommended she follow-up with her primary care physician for recheck within several days. She was discharged in stable condition. Amount and/or Complexity of Data Reviewed Labs: ordered. Radiology: ordered. ECG/medicine tests: ordered. Clinical Scoring & Consults Discharge Medication List as of 10/08/2024 1:12 AM CONTINUE these medications which have NOT CHANGED Details albuterol sulfate HFA 90 mcg/actuation aerosol inhaler Take 2 Puffs by inhalation every 4 hours as needed for Shortness of Breath., Disp-18 Gram, R-2 clonazePAM (KlonoPIN) 1 mg tablet TAKE ONE TABLET BY MOUTH IN THE MORNING AND 1/2 TABLET IN THE AFTERNOON AND 1/2 TABLET IN THE EVENING NEEDED FOR ANXIETYDx: F41.1, last visit 09/16/2024Disp-60 Tablet, R-5 cyproheptadine (PERIACTIN) 4 mg tablet Take 1 Tablet (4 mg) by mouth 2 times daily., Disp-180 Tablet, R-3 albuterol (PROVENTIL,VENTOLIN) 2.5 mg /3 mL (0.083 %) Solution for Nebulization Take 3 mL (2.5 mg) by inhalation every 6 hours as needed for Shortness of Breath., Disp-90 mL, R-2 nebulizer Length of need 99 months Nebulizer with compressor, Kit: Disposable Nebulizer Kit, 2 per month, filters , areosol mask: Yes.Name of Medication: albuterol, Disp-1 Each, R-0 STOP taking these medications benzonatate (TESSALON) 200 mg capsule Comments: Reason for Stopping: ondansetron (ZOFRAN ODT) 4 mg Tablet, Rapid Dissolve Comments: Reason for Stopping: levalbuterol HFA (XOPENEX HFA) 45 mcg/Actuation HFA Aerosol Inhaler Comments: Reason for Stopping: mupirocin (BACTROBAN) 2 % Ointment Comments: Reason for Stopping: LAST VS BP: 115/75 (10/08/24114), Heart Rate: 74 bpm (10/08/24114), Resp: 15 (10/08/24114), Pulse: 73(10/08/24114), Temp: 98.3 ??F (36.8 ??C) (10/07/242340), Temp src: Temporal (10/07/242340), SpO2: 100 % (10/08/24114) CLINICAL IMPRESSION Final diagnoses: [G43.009] Atypical migraine (Primary) DISPOSITION, EDUCATION AND MEDICATION RECONCILIATION Medications reconciled. See after visit summary for patient education on discharged patients. ED Disposition ED Disposition Discharge Condition Stable User Salty Panda MD Date/Time SatOct 08, 2024 1:03 AM Comment -- ATTESTATION STATEMENTS documented in this encounter Miscellaneous Notes * Gen AI RAHEEL - GENERATIVE AI HANDOFF NOTE - 10/08/2024 2:26 AM CDT ## ER_course: ## # DIAGNOSIS: Atypical migraine. Radha Higuera, a 44-year-old female, presented to the ED with a headache that started in the morning, accompanied by a squeezing sensation in her left arm and numbness in her right foot. She also reported hearing her heartbeat in her ears and feeling faint. Her symptoms resolved except for mild head pressure. # During the ER visit, the following abnormalities were noted: CBC showed elevated neutrophils at 76% and low lymphocytes at 18%. CMP showed a low CO2 level of 21. EKG revealed normal sinus rhythm with no ST segment abnormalities. Head CT was normal. # The patient declined pain medication and planned to take Tylenol at home. She was reassured that her symptoms were not indicative of a stroke and was discharged in stable condition. ## Follow_up_orders: ## # The patient is advised to follow up with her primary care physician for a recheck within several days. # No new prescriptions were provided, and no changes were made to her home medications. ## Home_Situation: ## # No specific factors potentially impairing follow-up care were noted in the ER documentation. documented in this encounter Plan of Treatment Upcoming Encounters Date Type Department Care Team (Late st Contact Info) Description 10/09/2024 2:20 PM CDT Office Visit [facility] [address] [place] [address] Ashley Rogel FNP [address] [place] [address] 03/19/2025 2:40 PM ADMINISTRATIVE PROGRAM SPECIALIST Office Visit [facility] [address] [place] [address] Francois Bean MD [address] [place] [address] 04/14/2025 12:20 PM ADMINISTRATIVE PROGRAM SPECIALIST Office Visit [facility] [address] [place] [phone] Francois Bean MD [address] [place] [address] documented as of this encounter Procedures Procedure Name Priority Date/Time Associated Diagnosis Comments CT HEAD WO CONTRAST Stat 10/08/2024 1 2:14 AM CDT TROPONIN BASELINE, 5TH GEN Stat 10/07/2024 11:53 PM CDT CBC WITH DIFFERENTIAL Stat 10/07/2024 11:53 PM CDT PTT Stat 10/07/2024 11:53 PM CDT PROTIME-INR Stat 10/07/2024 11:53 PM CDT BRAIN NATRIURETIC PEPTIDE, BNP OR PROBNP Stat 10/07/2024 11:53 PM CDT COMPREHENSIVE METABOLIC PANEL Stat 10/07/2024 11:53 PM CDT documented in this encounter Results * CT HEAD WO CONTRAST (10/08/2024 12:14 AM CDT) Anatomical Region Laterality Modality Head Computed Tomogra phy 10/07/2024 11:5 5 PM CDT Impressions 10/08/2024 9:46 AM CDT IMPRESSION: Negative head CT. Narrative 10/08/2024 9:46 AM CDT EXAM: Head CT without contrast. One or more of the following dose reduction techniques were utilized: automated exposure control[AEC], adjustment of mA and/or KV according to patient size, use of iterative reconstruction technique, CT scan done according to ALARA or ALARA image gently. HISTORY: Neuro deficit, acute, stroke suspected COMPARISON: None FINDINGS: No intracranial hemorrhage, mass effect, fractures or evidence of evolving infarct. No hydrocephalus. Paranasal sinuses and mastoid air cells are clear. Remainder unremarkable. Procedure Note Mauricio Fajardo MD - 10/08/2024 EXAM: Head CT without contrast. One or more of the following dose reduction techniques were utilized: automated exposure control[AEC], adjustment of mA and/or KV according to patient size, use of iterative reconstruction technique, CT scan done according to ALARA or ALARA image gently. HISTORY: Neuro deficit, acute, stroke suspected COMPARISON: None FINDINGS: No intracranial hemorrhage, mass effect, fractures or evidence of evolving infarct. No hydrocephalus. Paranasal sinuses and mastoid air cells are clear. Remainder unremarkable. IMPRESSION: Negative head CT. us Salty Panda MD CT ORDERABLES Final Re sult * BRAIN NATRIURETIC PEPTIDE, BNP OR PROBNP (10/07/2024 11:53 PM CDT) PROBNP, N TERMINAL 85 0 - 125 pg/mL 10/08/2024 12:57 AM CDT [facility] Comment: INTERPRETIVE COMMENT based on diagnosis: Diagnostic NT pro-BNP cutoffs for Heart Failure in the absence of renal failure is suggested for the following ranges <75 years: <125 pg/mL >=75 years: <450 pg/mL Exclusionary rule out cut-point for Acute Decompensated Heart Failure(ADHF) All ages: <300 pg/mL Diagnostic NT pro-BNP cutoffs for Acute Decompensated Heart Failure(ADHF) in the absence of renal failure is suggested for the following ages <50 years: > 450 pg/mL 50-75 years: > 900 pg/mL >75 years: >1800 pg/mL Blood BLOOD SPECIMEN / Unknown Collection / Unknown 10/07/2024 11:53 PM CDT 10/08/2024 12:02 AM CDT Salty Panda MD CHEMISTRY ORDERABLES Fin al Result Performing Organization Address City/[facility]/ZIP Co de Phone Number [facility] CLIA # [id number] [address] [place] [phone] * TROPONIN BASELINE, 5TH GEN (10/07/2024 11:53 PM CDT) TROPONIN T, BASELINE 5TH GEN <6 <=10 ng/L 10/08/2024 12:57 AM CDT [facility] Blood BLOOD SPECIMEN / Unknown Collection / Unknown 10/07/2024 11:53 PM CDT 10/08/2024 12:02 AM CDT Narrative [facility] - 10/08/2024 12:57 AM CDT Troponin Undetectable Salty Panda MD CHEMISTRY ORDERABLES Fin al Result Performing Organization Address [facility]/ZIP Co de Phone Number [facility] CLIA # [id number] [address] [place] [address] * (ABNORMAL) COMPREHENSIVE METABOLIC PANEL (10/07/2024 11:53 PM CDT) SODIUM 140 136 - 145 mmol/L 10/08/2024 12:19 AM CDT [facility] POTASSIUM 3.8 3.5 - 5.1 mmol/L 10/08/2024 12:19 AM [facility] CHLORIDE 106 98 - 107 mmol/L 10/08/2024 12:19 AM [facility] CO2 21(L) 22 - 29 mmol/L 10/08/2024 12:19 AM [facility] CALCIUM 9.6 8.6 - 10.0 mg/dL 10/08/2024 12:19 AM [facility] BUN 11 6 - 20 mg/dL 10/08/2024 12:19 AM [facility] CREATININE 0.83 0.51 - 0.95 mg/dL 10/08/2024 12:19 AM [facility] GLUCOSE 99 74 - 99 mg/dL 10/08/2024 12:19 AM [facility] TOTAL PROTEIN 6.6 6.6 - 8.7 g/dL 10/08/2024 12:19 AM [facility] ALBUMIN 4.3 3.5 - 5.2 g/dL 10/08/2024 12:19 AM [facility] BILIRUBIN TOTAL 0.2 0.0 - 1.2 mg/dL 10/08/2024 12:19 AM [facility] ALKALINE PHOSPHATASE 65 35 - 104 U/L 10/08/2024 12:19 AM [facility] AST 23 0 - 35 U/L 10/08/2024 12:19 AM [facility] ALT 24 0 - 35 U/L 10/08/2024 12:19 AM [facility] GFR >60 >=60 mL/min/1.7 3 sq meter 10/08/2024 12:19 AM [facility] Comment:eGFR calculated with 2020 CKD-EPI equation. Vegetarian diet, extremely high or low muscle mass, and may affect results. Cystatin C with Glomerular Filtration Rate is a suitable alternative for these patients. ANION GAP 13 5 - 20 mmol/L 10/08/2024 12:19 AM [facility] Blood BLOOD SPECIMEN / Unknown Collection / Unknown 10/07/2024 11:53 PM CDT 10/08/2024 12:02 AM CDT Salty Panda MD CHEMISTRY ORDERABLES Fin al Result Performing Organization Address [facility] Co de Phone Number [facility] CLIA # [id number] [address] [place] [address] * PTT (10/07/2024 11:53 PM CDT) PTT 29.6 25.1 - 35.4 seconds 10/08/2024 12:17 AM CDT [facility] Blood BLOOD SPECIMEN / Unknown Collection / Unknown 10/07/2024 11:53 PM CDT 10/08/2024 12:02 AM CDT Salty Panda MD HEMATOLOGY ORDERABLES Fi nal Result Performing Organization Address [facility] Phone Number [facility] CLIA # [id number] [address] [place] [address] * PROTIME-INR (10/07/2024 11:53 PM CDT) PROTIME 12.9 12.1 - 14.3 Seconds 10/08/2024 12:17 AM CDT [facility] INR 1.0 0.9 - 1.1 10/08/2024 12:17 AM CDT [facility] Blood BLOOD SPECIMEN / Unknown Collection / Unknown 10/07/2024 11:53 PM CDT 10/08/2024 12:02 AM CDT Salty Panda MD HEMATOLOGY ORDERABLES Fi nal Result Performing Organization Address [facility] Co dc Phone Number [facility] CLIA # [id number] [address] [place] [address] * (ABNORMAL) CBC WITH DIFFERENTIAL (10/07/2024 11:53 PM CDT) WBC 9.4 4.0 - 10.0 K/uL 10/08/2024 12:08 AM [facility] RBC 4.65 3.93 - 5.22 M/uL 10/08/2024 12:08 AM [facility] HEMOGLOBIN 13.7 11.2 - 15.7 g/dL 10/08/2024 12:08 AM [facility] HEMATOCRIT 40.6 34.1 - 44.9 % 10/08/2024 12:08 AM [facility] MCV 87.3 79.4 - 94.8 fL 10/08/2024 12:08 AM [facility] MCH 29.5 25.6 - 32.2 pg 10/08/2024 12:08 AM [facility] MCHC 33.7 32.2 - 35.5 g/dL 10/08/2024 12:08 AM [facility] RDW 11.7 11.0 - 14.5 % 10/08/2024 12:08 AM [facility] RDW-STDEV 37.2 36.9 - 56.9 fL 10/08/2024 12:08 AM [facility] PLATELETS 184 163 - 337 K/uL 10/08/2024 12:08 AM [facility] MPV 10.0 10.0 - 14.8 fL 10/08/2024 12:08 AM [facility] NEUTROPHILS 76(H) 34 - 71 % 10/08/2024 12:08 AM [facility] LYMPHOCYTES 18(L) 19 - 52 % 10/08/2024 12:08 AM [facility] MONOCYTES 5 5 - 13 % 10/08/2024 12:08 AM [facility] EOSINOPHILS 0(L) 1 - 6 % 10/08/2024 12:08 AM [facility] BASOPHILS 0 0 - 1 % 10/08/2024 12:08 AM [facility] IMMATURE GRANULOCYTES 0 % 10/08/2024 12:08 AM [facility] NEUTROPHIL ABSOLUTE 7.13(H) 1.56 - 6.13 K/uL 10/08/2024 12:08 AM CDT [facility] LYMPHOCYTE ABSOLUTE 1.69 1.20 - 3.40 K/uL 10/08/2024 12:08 AM T [facility] MONOCYTE ABSOLUTE 0.48(H) 0.24 - 0.36 K/uL 10/08/2024 12:08 AM T [facility] EOSINOPHIL ABSOLUTE 0.03(L) 0.04 - 0.36 K/uL 10/08/2024 12:08 AM T [facility] BASOPHILS ABSOLUTE 0.03 0.01 - 0.08 K/uL 10/08/2024 12:08 AM T [facility] IMMATURE GRANULOCYTES ABSOLUTE 0.02 K/uL 10/08/2024 12:08 AM [facility] Blood BLOOD SPECIMEN / Unknown Collection / Unknown 10/07/2024 11:53 PM CDT 10/08/2024 12:02 AM CDT Salty Panda MD HEMATOLOGY ORDERABLES Fi nal [id number] [address] [address] documented in this encounter Visit Diagnoses Diagnosis Atypical migraine- Primary Other forms of migraine, without mention of intractable migraine without mention of status migrainosus documented in this encounter Care Teams Job Press Operator Relationship Specialty Start Date End Date Francois Bean MD [address] [phone] PCP - General Family Practice 05/05/18 documented as of this encounter
[2024-10-08 20:27] VITALS: BP 131/79; PULSE 95; RESP 16; TEMP 37; O2SAT 98; BMI 21.8
--- OUTSIDE RECORDS SUMMARY | 2024-10-08 20:30 | XMS_ITS | Encounter Summary ---
Author Organization [facility] Address 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 Topic: Medication Request >> Oct 06, 2024 8:57 AM Filipe Dalal wrote: Caller Name: Radha Higuera Callback Number: Telephone Information: Medication (Ask patient/caregiver to spell if possible): albuterol inhaler Note: All medication prescriptions can be requested using one [facility] Preferred Pharmacy: [facility] Call Notes: refill Did caller contact the correct clinic for prescribing provider? Yes Ask caller if the refill is for a controlled medication. Is this for a controlled Medication? No Review the patient's medications to determine if they have refills remaining. Are there refill remaining for the medication? Yes Did the patient/caregiver contact their pharmacy for refill prior to calling? No documented in this encounter Plan of Treatment Upcoming Encounters Date Type Department Care Team (Late st Contact Info) Description 10/09/2024 2:20 PM CDT Office Visit [address] [phone] Ashley Rogel FNP [address] [phone] 03/19/2025 2:40 PM TOPPIECE CHOPPER Office Visit [facility] [address] [phone] Francois Bean MD [address] [phone] 04/14/2025 12:20 PM TOPPIECE CHOPPER Office Visit [facility] [address] [place] [address] Francois Bean MD [address] [phone] documented as of this encounter Visit Diagnoses Diagnosis Mild intermittent reactive airway disease without complication documented in this encounter Care Teams Dicer Machine Operator Relationship Specialty Start Date End Date Francois Bean MD [address] [phone] PCP - General Family Practice 05/05/18 documented as of this encounter
--- OUTSIDE RECORDS SUMMARY | 2024-10-08 20:30 | XMS_ITS | Encounter Summary ---
Author Organization [facility] Address [address] [place] [address] Care Team Providers Care Microbiology Lab Manager Name Role Phone Francois Bean MD Primary Care Provider [phone] [phone] Encounter Details Date Type Department Care Team (Latest Contact Info) Description 02/10/1999 Outpatient Historical [facility] Medicine- [address] [phone] Emanuel Arredondo DO NO ADDRESS ON FILE Panic disorder without agoraphobia (Primary Dx) Social History Tobacco Use Types Packs/Day Years Used Date Smoking Tobacco: Never Assessed Comments Unknown Sex and Gender Information Value Date Recorded Sex Assigned at Not on file Legal Sex Female 4:24 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
--- OUTSIDE RECORDS SUMMARY | 2024-10-08 20:30 | XMS_ITS | Encounter Summary ---
Author Organization [facility] Address [address] [place] [address] Care Team Providers Care Window Clerk Name Role Phone Francois Bean MD Primary Care Provider [phone] Encounter Details Date Type Department Care Team (Latest Contact Info) Description 09/11/1999 Outpatient Historical [facility] Medicine [place] [address] [address] Emanuel Arredondo DO NO ADDRESS ON FILE Depressive disorder, not elsewhere classified (Primary Dx); Cardiac dysrhythmia, unspecified Social History Tobacco Use Types Packs/Day Years Used Date Smoking Tobacco: Never Assessed Comments Unknown Sex and Gender Information Value Date Recorded Sex Assigned at Not on file 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
--- OUTSIDE RECORDS SUMMARY | 2024-10-08 20:30 | XMS_ITS | Encounter Summary ---
Author Organization [facility] Address [address] [place] [address] Care Team Providers Care Parts Representative Name Role Phone Francois Bean MD Primary Care Provider [phone] Encounter Details Date Type Department Care Team (Latest Contact Info) Description 05/29/1999 Outpatient Historical [facility] [place] [facility] [address] [address] Emanuel Arredondo DO NO ADDRESS ON FILE Absence of menstruation (Primary Dx); Headache(784.0); Surveillance of other previously prescribed contraceptive method Social History Tobacco Use Types Packs/Day Years Used Date Smoking Tobacco: Never Assessed Comments Unknown Sex and Gender Information Value Date Recorded Sex Assigned at Not on file 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
--- OUTSIDE RECORDS SUMMARY | 2024-10-08 20:30 | XMS_ITS | Clinical Summary ---
Author Organization [facility] Address [address] [facility] [place] [address] Care Team Providers Care Social Work Therapist Name Role Phone Francois Bean MD Primary Care Provider [phone] [phone] Allergies Active Allergy Reactions Criticality Noted Date Comments Codeine Shortness of Breath/Wheezing High 020 Morphine Itching Low 01/21/2017 Penicillins Abdominal Pain Low 03/06/2020 Medications ondansetron (ZOFRAN) 4 mg TabletIndication s:2019 novel coronavirus disease (COVID-19) Take 1 Tablet (4 mg) by mouth every 8 hours as needed for Nausea. 10 Tablet 1 0 Active metoclopramide HCl (REGLAN) 10 mg tablet Take 1 Tablet (10 mg) by mouth every 6 hours as needed for Nausea/Emesis . 10 Tablet 0 Active clonazePAM (KlonoPIN) 0.5 mg TabletIndication s:ANIVAL (generalized anxiety disorder) Take 1 Tablet (0.5 mg) by mouth 3 times daily as needed for Anxiety. 90 Tablet 5 1 Active cephALEXin (KEFLEX) 250 mg capsuleIndicatio ns:Acute cystitis with hematuria Take 1 Capsule (250 mg) by mouth 3 times daily. Dose decrease 21 Capsule 1 Active Active Problems Problem Noted Date Diagnosed Date ANIVAL (generalized anxiety disorder) 12/08/2013 Resolved Problems Problem Noted Date Diagnosed Date Resolved Date Annual physical exam 12/08/2013 019 Dentalgia 12/08/2013 05/05/2018 Immunizations Immunization Administration Dates Next Due Influenza Seasonal Unspecified Formulation IM Family History Medical History Relation Name Comments Healthy Brother 1 Anxiety Brother 2 Melanoma Father Unknown Maternal Grandfather Glaucoma Maternal Grandmother Glaucoma Mother Melanoma Paternal Grandfather Cancer Paternal Grandmother Relation Name Status Comments Brother 1 Alive Brother 2 Alive Father Maternal Grandfather Maternal Grandmother Alive Mother Alive Paternal Grandfather Paternal Grandmother Social History Tobacco Use Types Packs/Day Years Used Date Smoking Tobacco: Former Cigarettes Q uit: 11/21/2016 Smokeless Tobacco: Never Alcohol Use Standard Drinks/Week Comments No 0 (1 standard drink = 0.6 oz pur e alcohol) Comments No Sex and Gender Information Value Date Recorded Sex Assigned at Not on file 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 Sex Female 4:24 AM PILOT Gender Identity Not on file Sexual Orientation Not on file Occupation Industry Job Start Date Job End Date Not on file Not on file Not on file Not on file Last Filed Vital Signs Vital Sign Reading Time Taken Comments Blood Pressure 118/68 08/25/2020 1:24 PM CDT Pulse 97 08/25/2020 1:24 PM CDT Temperature 37.2 C (99 F) 08/25/2020 1:24 PM CDT Respiratory Rate 16 08/25/2020 1:24 PM CDT Oxygen Saturation 97% 08/25/2020 1:24 PM CDT Inhaled Oxygen Concentration - - Weight 50.8 kg (112 lb) 08/25/2020 1:24 PM CDT Height 162.6 cm (5' 4 ) 08/25/2020 1:24 PM CDT Body Mass Index 19.22 08/25/2020 1:24 PM CDT Plan of Treatment Health Maintenance Due Date Last Done Comments DTAP/TDAP/TD VACCINES (1 - Tdap) 2000 HEPATITIS B VACCINES (1 of 3 - 19+ 3-dose series) 2000 HPV/Cotest (21-29) 2002 CERVICAL CANCER SCREENING 07/10/2011 HPV/Cotest (30-65) 07/10/2011 PAP SMEAR 07/10/2011 BREAST CANCER SCREENING 2021 INFLUENZA VACCINE (#1) 2024 0, 02/04/2020, 01/23/2019 HPV VACCINES Aged Out No longer eligi ble based on patient's age to complete this topic Care Teams Social Work Therapist Relationship Specialty Start Date End Date Francois Bean MD [address] [phone] PCP - General Family Practice 05/05/18
--- OUTSIDE RECORDS SUMMARY | 2024-10-08 20:30 | XMS_ITS | Clinical Summary ---
Author Organization [facility] Address [address] [facility] Attn: Epic Prelude ADT [place] [address] Care Team Providers Care Gear Design Engineer Name Role Phone Francois Bean MD Primary Care Provider [phone] Allergies Active Allergy Reactions Criticality Noted Date Comments Codeine Shortness of Breath/Wheezing High 020 Morphine Itching Low 01/21/2017 Penicillins Abdominal Pain Low 03/06/2020 Medications nebulizerIndicat ions:Wheezing Length of need 99 months Nebulizer with compressor, Kit: Disposable Nebulizer Kit, 2 per month, filters , areosol mask: Yes. Name of Medication: albuterol 1 Each 06/09/19 25 Active Additional Information Patient not taking.Reported on 09/16/2024 albuterol (PROVENTIL,ALVERTO TY) 2.5 mg /3 mL (0.083 %) Solution for Nebulization Take 3 mL (2.5 mg) by inhalation every 6 hours as needed for Shortness of Breath. 90 mL 2 08/18/19 25 Active clonazePAM (KlonoPIN) 1 mg tabletIndication s:ANIVAL (generalized anxiety disorder) TAKE ONE TABLET BY MOUTH IN THE MORNING AND 1/2 TABLET IN THE AFTERNOON AND 1/2 TABLET IN THE EVENING NEEDED FOR ANXIETY 60 Tablet 5 09/17/19 25 Active cyproheptadine (PERIACTIN) 4 mg tabletIndication s:Appetite loss Take 1 Tablet (4 mg) by mouth 2 times daily. 180 Tablet 3 09/17/19 25 Active albuterol sulfate HFA 90 mcg/actuation aerosol inhalerIndicatio ns:Mild intermittent reactive airway disease without complication Take 2 Puffs by inhalation every 4 hours as needed for Shortness of Breath. 18 Gram 2 10/07/19 25 Active albuterol sulfate HFA 90 mcg/actuation aerosol inhalerIndicatio ns:Mild intermittent reactive airway disease without complication Take 2 Puffs by inhalation every 4 hours as needed for Shortness of Breath. 18 Gram 11 03/18/20 24 025 Discontin ued(Reord er) cyproheptadine (PERIACTIN) 4 mg tabletIndication s:Appetite loss Take 1 Tablet (4 mg) by mouth 2 times daily. 180 Tablet 3 03/18/20 24 025 Discontin ued(Reord er) clonazePAM (KlonoPIN) 1 mg tabletIndication s:ANIVAL (generalized anxiety disorder) TAKE ONE TABLET BY MOUTH IN THE MORNING AND 1/2 TABLET IN THE AFTERNOON AND 1/2 TABLET IN THE EVENING NEEDED FOR ANXIETY 60 Tablet 2 07/17/19 25 025 Discontin ued(Reord er) Active Problems Problem Noted Date Diagnosed Date Influenza vaccination declined 03/18/2024 Appetite loss 03/18/2024 Wheezing 03/18/2024 Anxiety 09/17/2022 Sinus tachycardia 09/17/2022 PAC (premature atrial contraction) 11/05/2020 ANIVAL (generalized anxiety disorder) 12/08/2013 Resolved Problems Problem Noted Date Diagnosed Date Resolved Date Viral gastroenteritis 10/17/20232024 Cyproheptadine adverse react ion, initial encounter 09/17/2022 10/26/2022 Side effect of medication 09/17/2022 Dehydration, mild 09/17/2022 09/16/2024 Paroxysmal atrial fibrillation 09/12/2022 10/26/2022 Anxiety attack 09/12/2022 10/26/2022 Dentalgia 12/08/2013 05/05/2018 Annual physical exam 12/08/2013 019 Encounters Date Type Department Care Team Description 10/08/2024 Telephone [facility] Medicine [address] [address] Francois Bean MD Clinical Consult Before Scheduling 10/07/2024 11:40 PM CDT - 10/08/2024 1:24 AM CDT Emergency [facility] Emergency Medicine [address] [address] Salty Panda MD Atypical migraine (Primary Dx) Discharge Disposition: Home or Self Care 10/07/2024 Travel 10/07/2024 Results Follow-Up [address] [address] Francois Bean MD C-REACTIVE PROTEIN, TSH, HEMOGLOBIN A1C, CONNECTIVE TISSUE DISEASE CASCADE 10/06/[address] [address] Francois Baen MD Mild intermittent reactive airway disease without complication 10/06/[address] [address] Francois Bean MD Results 09/29/2024 External Device Data ST[facility] ABSTRACTION Provider, Abstract 09/16/2024 12:00 PM CDT Office Visit [facility] [address] [place] [address] Francois Bean MD ANIVAL (generalized anxiety disorder) (Primary Dx); Appetite loss; Nodule of finger of both hands; Hypoglycemia; Polyarthralgia 09/08/2024 External Device Data ST[facility] ABSTRACTION Provider, Abstract 09/08/2024 External Device Data [facility] ABSTRACTION Provider, Abstract 08/17/[address] [address] Francois Bean MD 08/11/2024 External Device Data ST[facility] ABSTRACTION Provider, Abstract 08/04/2024 External Device Data ST[facility] ABSTRACTION Provider, Abstract 07/15/[address] [address] Francois Bean MD Medication Assistance 07/14/2024 External Device Data ST[facility] ABSTRACTION Provider, Abstract 07/14/2024 External Device Data STL ABSTRACTION Provider, Abstract from Last 3 Months Immunizations Immunization Administration Dates Next Due Influenza Seasonal Unspecified Formulation IM Family History Medical History Relation Name Comments Healthy Brother 1 Anxiety Brother 2 Melanoma Father Unknown Maternal Grandfather Glaucoma Maternal Grandmother Glaucoma Mother Cancer - Other Paternal Aunt colon Breast Cancer Paternal Cousin Cancer - Other Paternal Grandfather prost ate Melanoma Paternal Grandfather Ovarian Cancer Paternal Grandmother Cancer Paternal Uncle lung Relation Name Status Comments Brother 1 Alive Brother 2 Alive Father Maternal Grandfather Maternal Grandmother Alive Mother Alive Paternal Aunt Paternal Cousin Paternal Grandfather Paternal Grandmother Paternal Uncle Social History Tobacco Use Types Packs/Day Years Used Date Smoking Tobacco: Former Cigarettes Q uit: 11/21/2016 Smokeless Tobacco: Never Tobacco Cessation:Counseling Given: Not Answered Alcohol Use Standard Drinks/Week Comments No 0 (1 standard drink = 0.6 oz pur e alcohol) Feeling Safe Answer Date Recorded Are you in a relationship wi th someone who hurts you emotionally and/or physically? No 10/07/2024 Comments No Sex and Gender Information Value Date Recorded Sex Assigned at Not on file Legal Sex Female 9:47 AM [employer] Gender Identity Not on file Sexual Orientation Not on file Last Filed Vital Signs [...] Mass Index 20.32 10/07/2024 11:41 PM CDT Plan of Treatment Upcoming Encounters Date Type Department Care Team (Late st Contact Info) Description 10/09/2024 2:20 PM CDT Office Visit [address] [phone] Ashley Rogel FNP [address] [place] [address] 03/19/2025 2:40 PM [employer] Office Visit [facility] [address] [place] [address] Francois Bean MD [address] [place] [address] 04/14/2025 12:20 PM [employer] Office Visit [facility] [address] [place] [phone] Francois Bean MD [address] [place] [address] Health Maintenance Due Date Last Done Comments DTAP/TDAP/TD VACCINES (5 - Tdap) 03/17/1997 03/16/1997, 12/13/1986, 04/13/1983, Additional history exists HPV/Cotest (21-29) 2002 CERVICAL CANCER SCREENING 07/10/2011 HPV/Cotest (30-65) 07/10/2011 PAP SMEAR 07/10/2011 Preventative Visit- Commercial 04/01/2024 INFLUENZA VACCINE (#1) 2024 , 03/18/2024, 12/06/2022, Additional history exists BREAST CANCER SCREENING 02/25/2025 02/26/2024 HEPATITIS B VACCINES Completed 07/08/1998, 04/25/1998, 03/03/1998 HPV VACCINES Aged Out No longer eligi ble based on patient's age to complete this topic Procedures Procedure Name Priority Date/Time Associated Diagnosis Comments CT HEAD WO CONTRAST Stat 10/08/2024 1 2:14 AM CDT BRAIN NATRIURETIC PEPTIDE, BNP OR PROBNP Stat 10/07/2024 11:53 PM CDT TROPONIN BASELINE, 5TH GEN Stat 10/07/2024 11:53 PM CDT COMPREHENSIVE METABOLIC PANEL Stat 10/07/2024 11:53 PM CDT PTT Stat 10/07/2024 11:53 PM CDT PROTIME-INR Stat 10/07/2024 11:53 PM CDT CBC WITH DIFFERENTIAL Stat 10/07/2024 11:53 PM CDT CONNECTIVE TISSUE DISEASE CASCADE Routine 09/16/2024 12:40 PM CDT Polyarthralgia HEMOGLOBIN A1C Routine 09/16/2024 12:40 PM CDT Hypoglycemia TSH Routine 09/16/2024 12:40 PM CDT ANIVAL (generalized anxiety disorder) Appetite loss Hypoglycemia C-REACTIVE PROTEIN Routine 09/16/2024 12 :40 PM CDT Polyarthralgia MAMMO 3D [facility]AT W OR WO CAD Routine 02/26/2024 12:38 PM [employer] Mass of lower outer quadrant of left breast Subareolar mass of right breast from Last 3 Months or Most Recently Relevant to Health Maintenance Results * CT HEAD WO CONTRAST (10/08/2024 [...] MD CT ORDERABLES Final Re sult * TROPONIN BASELINE, 5TH GEN (10/07/2024 11:53 PM CDT) Pathologist [facility] TROPONIN T, BASELINE 5TH GEN <6 <=10 ng/L 10/08/2024 12:57 AM CDT [facility] Blood BLOOD SPECIMEN / Unknown Collection / Unknown 10/07/2024 11:53 PM CDT 10/08/2024 12:02 AM CDT Narrative [facility] - 10/08/2024 12:57 AM CDT Troponin Undetectable us Salty Panda MD CHEMISTRY ORDERABLES Fin al Result [id number] [address] [place] [address] * (ABNORMAL) CBC WITH DIFFERENTIAL (10/07/2024 11:53 PM CDT) Pathologist [facility] WBC 9.4 4.0 - 10.0 K/uL 10/08/2024 12:08 AM CDT [facility] RBC 4.65 3.93 - 5.22 M/uL 10/08/2024 12:08 AM T [facility] HEMOGLOBIN 13.7 11.2 - 15.7 g/dL 10/08/2024 12:08 AM T [facility] HEMATOCRIT 40.6 34.1 - 44.9 % 10/08/2024 12:08 AM [facility] MCV 87.3 79.4 - 94.8 fL 10/08/2024 12:08 AM [facility] MCH 29.5 25.6 - 32.2 pg 10/08/2024 12:08 AM [facility] MCHC 33.7 32.2 - 35.5 g/dL 10/08/2024 12:08 AM [facility] RDW 11.7 11.0 - 14.5 % 10/08/2024 12:08 AM [facility] RDW-STDEV 37.2 36.9 - 56.9 fL 10/08/2024 12:08 AM [facility] PLATELETS 184 163 - 337 K/uL 10/08/2024 12:08 AM [facility] MPV 10.0 10.0 - 14.8 fL 10/08/2024 12:08 AM [facility] NEUTROPHILS 76(H) 34 - 71 % 10/08/2024 12:08 AM [facility] LYMPHOCYTES 18(L) 19 - 52 % 10/08/2024 12:08 AM [facility] MONOCYTES 5 5 - 13 % 10/08/2024 12:08 AM [facility] EOSINOPHILS 0(L) 1 - 6 % 10/08/2024 12:08 AM [facility] BASOPHILS 0 0 - 1 % 10/08/2024 12:08 AM [facility] IMMATURE GRANULOCYTES 0 % 10/08/2024 12:08 AM [facility] NEUTROPHIL ABSOLUTE 7.13(H) 1.56 - 6.13 K/uL 10/08/2024 12:08 AM [facility] LYMPHOCYTE ABSOLUTE 1.69 1.20 - 3.40 K/uL 10/08/2024 12:08 AM [facility] MONOCYTE ABSOLUTE 0.48(H) 0.24 - 0.36 K/uL 10/08/2024 12:08 AM [facility] EOSINOPHIL ABSOLUTE 0.03(L) 0.04 - 0.36 K/uL 10/08/2024 12:08 AM CDT [facility] BASOPHILS ABSOLUTE 0.03 0.01 - 0.08 K/uL 10/08/2024 12:08 AM CDT [facility] IMMATURE GRANULOCYTES ABSOLUTE 0.02 K/uL 10/08/2024 12:08 AM CDT [facility] Blood BLOOD SPECIMEN / Unknown Collection / Unknown 10/07/2024 11:53 PM CDT 10/08/2024 12:02 AM CDT Salty Panda MD HEMATOLOGY ORDERABLES Fi nal Result [facility] CLIA # [id number] [address] [place] [address] * PTT (10/07/2024 11:53 PM CDT) PTT 29.6 25.1 - 35.4 seconds 10/08/2024 12:17 AM CDT [facility] Blood BLOOD SPECIMEN / Unknown Collection / Unknown 10/07/2024 11:53 PM CDT 10/08/2024 12:02 AM CDT Salty Panda MD HEMATOLOGY ORDERABLES Fi nal Result [facility] CLIA # [id number] [address] [place] [address] * PROTIME-INR (10/07/2024 11:53 PM CDT) PROTIME 12.9 12.1 - 14.3 Seconds 10/08/2024 12:17 AM CDT [facility] INR 1.0 0.9 - 1.1 10/08/2024 12:17 AM CDT [facility] Blood BLOOD SPECIMEN / Unknown Collection / Unknown 10/07/2024 11:53 PM CDT 10/08/2024 12:02 AM CDT us Salty Panda MD HEMATOLOGY ORDERABLES Fi nal Result [facility] CLIA # [id number] [address] [place] [address] * BRAIN NATRIURETIC PEPTIDE, BNP OR PROBNP (10/07/2024 11:53 PM CDT) PROBNP, N TERMINAL 85 0 - 125 pg/mL 10/08/2024 12:57 AM CDT [facility] Comment: INTERPRETIVE COMMENT based on diagnosis: [...] 11:53 PM CDT 10/08/2024 12:02 AM CDT us Salty Panda MD CHEMISTRY ORDERABLES Fin al Result [facility] CLIA # [id number] [address] [place] [address] * (ABNORMAL) COMPREHENSIVE METABOLIC PANEL (10/07/2024 11:53 PM CDT) SODIUM 140 136 - 145 mmol/L 10/08/2024 12:19 AM CDT [facility] POTASSIUM 3.8 3.5 - 5.1 mmol/L 10/08/2024 12:19 AM CDT [facility] CHLORIDE 106 98 - 107 mmol/L 10/08/2024 12:19 AM [facility] CO2 21(L) 22 - 29 mmol/L 10/08/2024 12:19 AM [facility] CALCIUM 9.6 8.6 - 10.0 mg/dL 10/08/2024 12:19 AM [facility] BUN 11 6 - 20 mg/dL 10/08/2024 12:19 AM [facility] CREATININE 0.83 0.51 - 0.95 mg/dL 10/08/2024 12:19 AM [facility] GLUCOSE 99 74 - 99 mg/dL 10/08/2024 12:19 AM [facility] TOTAL PROTEIN 6.6 6.6 - 8.7 g/dL 10/08/2024 12:19 AM [facility] ALBUMIN 4.3 3.5 - 5.2 g/dL 10/08/2024 12:19 AM [facility] BILIRUBIN TOTAL 0.2 0.0 - 1.2 mg/dL 10/08/2024 12:19 AM [facility] ALKALINE PHOSPHATASE 65 35 - 104 U/L 10/08/2024 12:19 AM [facility] AST 23 0 - 35 U/L 10/08/2024 12:19 AM [facility] ALT 24 0 - 35 U/L 10/08/2024 12:19 AM [facility] GFR >60 >=60 mL/min/1.7 3 sq meter 10/08/2024 12:19 AM [facility] Comment:eGFR calculated with 2020 CKD-EPI equation. Vegetarian diet, extremely high or low muscle mass, and may affect results. Cystatin C with Glomerular Filtration Rate is a suitable alternative for these patients. ANION GAP 13 5 - 20 mmol/L 10/08/2024 12:19 AM [facility] Blood BLOOD SPECIMEN / Unknown Collection / Unknown 10/07/2024 11:53 PM CDT 10/08/2024 12:02 AM CDT us Salty Panda MD CHEMISTRY ORDERABLES Fin al Result [id number] [address] [place] [address] * (ABNORMAL) CONNECTIVE TISSUE DISEASE CASCADE (09/16/2024 12:40 PM CDT) SCARLETT SCREEN POSITIVE (A) NEGATIVE [facility]/ [facility], Comment: SCARLETT IFA is a first line screen for detecting the presence of up to approximately 150 autoantibodies in various autoimmune diseases. A positive SCARLETT IFA result is suggestive of autoimmune disease and reflexes to titer, pattern and the 3 tiered Multiplex 11 Antibody [place]. Testing in the [place] stops at the first positive result, and does not preclude additional positive results. Further laboratory testing may be considered if clinically indicated. For additional information, please refer to http://education.LockerDome/faq/WQX962 (This link is being provided for informational/ educational purposes only.) RHEUMATOID FACTOR <10 <14 IU/mL Qu est [facility]/ [facility], CYCLIC CITRULLINATED PEPTIDE AB IGG <16 UNITS [facility]/ [facility], Comment: Reference Range Negative: <20 Weak Positive: 20-39 Moderate Positive: 40-59 Strong Positive: >59 MUTATED CITRULLINATED VIMENTIN AB <20 <20 U/mL [facility]/ [facility], Comment: Anti-mutated citrullinated vimentin antibody may be used as a second-line marker of rheumatoid arthritis, in addition to rheumatoid factor and anti-cyclic citrullinated peptide (CCP). SCARLETT TITER 1:40(H) titer [facility]/ [facility], Comment: A low level SCARLETT titer may be present in pre-clinical autoimmune diseases and normal individuals. Reference Range <1:40 Negative 1:40-1:80 Low Antibody Level >1:80 Elevated Antibody Level SCARLETT PATTERN Nuclear, Speckled (A) [facility]/ [facility], Comment: Speckled pattern is associated with mixed connective tissue disease (MCTD), systemic lupus erythematosus (SLE), Sjogren's syndrome, dermatomyositis, and systemic sclerosis/polymyositis overlap. AC-2,4,5,29: Speckled International Consensus on SCARLETT Patterns (https://doi.org/10.1515/dvfq-7908-3171) DNA AUTOABS DOUBLE STRANDED <1 IU/mL [facility]/ [facility], Comment: IU/mL Interpretation < or = 4 Negative 5-9 Indeterminate > or = 10 Positive CORTES IGG AB <1.0 NEG <1.0 NEG AI [facility]/ [facility], BERNY ABS, SM/TAX SPECIALIST AB <1.0 NEG <1.0 NEG AI [facility]/ [facility], TAX SPECIALIST AB 1.0 POS(A) <1.0 NEG AI [facility]/ [facility], CHROMATIN (NUCLEOSOMAL) ANTIBODY <1.0 NEG <1.0 NEG AI [facility]/ [facility], Comment: ANTIBODY PREVALENCE IN TIER 1 Double stranded DNA (dsDNA) antibodies are present in 57% to 62% systemic lupus erythematosus (SLE), 10% to 43% polymyositis, 11% to 20% Sjogren's syndrome, 8% systemic sclerosis (scleroderma) and 0% to 8% mixed connective tissue disease (MCTD). Chromatin antibody is present in >80% MCTD, 37% to 73% SLE, 14% systemic sclerosis, 12% Sjogren's syndrome and 8% polymyositis. Ribonucleoprotein (TAX SPECIALIST) antibodies are to TAX SPECIALIST A and/or TAX SPECIALIST 68kD proteins; antibodies to one or both are present in >80% MCTD, 22% to 48% SLE, 14% systemic sclerosis, 12% Sjogren's and 8% polymyositis. Sm/TAX SPECIALIST antibodies are directed to epitopes formed in a complex of Sm and TAX SPECIALIST; antibodies to the Sm/TAX SPECIALIST complex are present in 54% to 94% MCTD, 30% SLE, 4% systemic sclerosis, and 9% Sjogren's and polymyositis. Sm antibody is present in 20% to 30% SLE, 8% MCTD, 10% polymyositis, 0% systemic sclerosis and 4% Sjogren's syndrome. Double stranded DNA, Chromatin, Ribonucleoprotein, Sm/TAX SPECIALIST complex and Sm antibodies are present in <2% of normal blood donors. The [place] does not rule out autoimmune disease characterized by other autoantibody specificities such as rheumatoid arthritis, autoimmune hepatitis, primary biliary cirrhosis, autoimmune thyroiditis, Hampshire's disease, pernicious anemia, autoimmune neuropathies, vasculitis, celiac disease and bullous disease. Please contact your local [facility] laboratory if you are interested in additional testing. SCARLETT PROFILE INTERP Q [facility]/ [facility], Comment: TAX SPECIALIST antibody is found in patients with mixed connective tissue disease in high titer. This antibody may also be seen in systemic lupus erythematosus and other connective tissue diseases. A positive result at this stage of testing stops further testing, and does not preclude additional positive antibodies. Clinical correlation is required to assess the need for testing additional analytes. Test Performed at: [facility], [address] [place] [phone] Evette Kc MD,PhD,JACK VELAZQUEZ Blood 09/16/2024 12:4 0 PM CDT 09/17/2024 2:52 AM CDT Francois Bean MD CHEMISTRY ORDERABLES Marifer l Result Performing Organization Address City/[facility] Co de Phone Number [facility] [phone] [facility], [address] [place] [address] * C-REACTIVE PROTEIN (09/16/2024 12:40 PM CDT) CRP <3.0 <8.0 mg/L [facility] Comment: Test Performed at: [facility] [address] [address] Félix Reyes MD Blood 09/16/2024 12:4 0 PM CDT 09/17/2024 2:52 AM CDT Francois Bean MD CHEMISTRY ORDERABLES Marifer l Result [facility] [phone] [facility] [place] [address] * TSH (09/16/2024 12:40 PM CDT) Pathologist [facility] TSH 0.96 mIU/L [facility] Comment: Reference Range > or = 20 Years 0.40-4.50 Ranges First trimester 0.26-2.66 Second trimester 0.55-2.73 Third trimester 0.43-2.91 Test Performed at: [facility] [address] [place] [address], [place] [address] Félix Reyes MD Blood 09/16/2024 12:4 0 PM CDT 09/17/2024 2:52 AM CDT Francois Bean MD CHEMISTRY ORDERABLES [facility] Result [facility] [phone] [facility] [place] [address] * HEMOGLOBIN A1C (09/16/2024 12:40 PM CDT) [facility] HEMOGLOBIN A1C 5.3 <5.7 % [facility] Comment: For the purpose of screening for the presence of diabetes: <5.7% Consistent with the absence of diabetes 5.7-6.4% Consistent with increased risk for diabetes (prediabetes) > or =6.5% Consistent with diabetes This assay result is consistent with a decreased risk of diabetes. Currently, no consensus exists regarding use of hemoglobin A1c for diagnosis of diabetes in children. According to [place] Diabetes Association (ADA) guidelines, hemoglobin A1c <7.0% represents optimal control in non- diabetic patients. Different metrics may apply to specific patient populations. Standards of Medical Care in Diabetes(ADA). ESTIMATED AVERAGE GLUCOSE (MG/DL) 105 mg/dL [facility] ESTIMATED AVERAGE GLUCOSE (MMOL/L) 5.8 mmol/L [facility] Comment: Test Performed at: [facility] [address] [place] [address] Félix Reyes MD Blood 09/16/2024 12:4 0 PM CDT 09/17/2024 2:52 AM CDT Francois Bean MD CHEMISTRY ORDERABLES Marifer barry Result [facility] [phone] [facility] [address] [address] [facility] [place] [address] * MAMMO 3D [facility] BILAT W OR WO CAD (02/26/2024 12:38 PM [employer]) Anatomical Region Laterality Modality Breast Bilateral Mammography 02/26/2024 12:3 8 PM [employer] [employer] Impressions 03/02/2024 9:53 AM [employer] [employer] IMPRESSION: BI-RADS 2. Benign cysts bilateral breasts including areas of lumps, although density of the breast tissue can limit the sensitivity of mammography. Continue annual screening mammography. Patient wanted cyst aspiration of the left side, this can be scheduled as indicated. Findings and verbal/written recommendations were conveyed to the patient after completion of the exam. [id number] Narrative 03/02/2024 9:53 AM [facility] EXAMINATION: Bilateral diagnostic mammography with tomosynthesis. Films were reviewed by CAD. Ultrasound bilateral breasts. INDICATION: Lumps bilateral breast from approximately six months. COMPARISON: None, this is a baseline exam. FINDINGS: The breast tissue is extremely dense, which can limit the sensitivity of mammography. Bilateral multiple partially obscured predominantly well marginated masses are noted including areas of lumps. These are statistically benign etiology. Ultrasound was done in the areas of lumps. Ultrasound bilateral breasts: Multiple anechoic benign cysts are visualized bilaterally in the areas of lumps. Largest on the right side measures up to 2 cm 11:30 o'clock position and 1.7 cm in the subareolar region 12:00 position. Few additional benign cyst clusters are also noted. Larger cyst on the left measures up to 3 cm at 5:30 o'clock position 4 cm from nipple in the region of lump. Patient expressed desire for this cyst to be aspirated. Procedure Note Pauline Garay MD - 03/02/2024 EXAMINATION: Bilateral diagnostic mammography with tomosynthesis. Films were reviewed by CAD. Ultrasound bilateral breasts. INDICATION: Lumps bilateral breast from approximately six months. COMPARISON: None, this is a baseline exam. FINDINGS: The breast tissue is extremely dense, which can limit the sensitivity of mammography. Bilateral multiple partially obscured predominantly well marginated masses are noted including areas of lumps. These are statistically benign etiology. Ultrasound was done in the areas of lumps. Ultrasound bilateral breasts: Multiple anechoic benign cysts are visualized bilaterally in the areas of lumps. Largest on the right side measures up to 2 cm 11:30 o'clock position and 1.7 cm in the subareolar region 12:00 position. Few additional benign cyst clusters are also noted. Larger cyst on the left measures up to 3 cm at 5:30 o'clock position 4 cm from nipple in the region of lump. Patient expressed desire for this cyst to be aspirated. IMPRESSION: BI-RADS 2. Benign cysts bilateral breasts including areas of lumps, although density of the breast tissue can limit the sensitivity of mammography. Continue annual screening mammography. Patient wanted cyst aspiration of the left side, this can be scheduled as indicated. Findings and verbal/written recommendations were conveyed to the patient after completion of the exam. [id number] Nilam Dumont WEIGH TANK OPERATOR MAMMO ORDERABLES Final R esult from Last 3 Months or Most Recently Relevant to Health Maintenance Care Teams Gear Design Engineer Relationship Specialty Start Date End Date Francois Bean MD [address] [address] PCP - General Family Practice 05/05/18
--- OUTSIDE RECORDS SUMMARY | 2024-10-08 20:30 | XMS_ITS | Encounter Summary ---
Author Organization [facility] Address [address] [place] [address] Care Team Providers Care Fabric Worker Supervisor Name Role Phone Francois Bean MD Primary Care Provider +1 [phone] Encounter Details Date Type Department Care Team (Latest Contact Info) Description 02/27/1999 Outpatient Historical [facility] Family Medicine [place] [address] [address] Emanuel Arredondo DO NO ADDRESS ON FILE Panic disorder without agoraphobia (Primary Dx); Absence of menstruation Social History Tobacco Use Types Packs/Day Years Used Date Smoking Tobacco: Never Assessed Comments Unknown Sex and Gender Information Value Date Recorded Sex Assigned at Not on file Legal 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
--- OUTSIDE RECORDS SUMMARY | 2024-10-08 20:30 | XMS_ITS | Encounter Summary ---
Author Organization [facility] Address [address] [place] [address] Care Team Providers Care Security Risk Analyst Name Role Phone Francois Bean MD Primary Care Provider +1 [phone] Encounter Details Date Type Department Care Team (Latest Contact Info) Description 02/13/1999 Outpatient Historical [facility] Family Medicine [address] [address] Emanuel Arredondo DO NO ADDRESS ON FILE Depressive disorder, not elsewhere classified (Primary Dx) Social History Tobacco Use Types Packs/Day Years Used Date Smoking Tobacco: Never Assessed Comments Unknown Sex and Gender Information Value Date Recorded Sex Assigned at Not on file 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
--- OUTSIDE RECORDS SUMMARY | 2024-10-08 20:30 | XMS_ITS | Encounter Summary ---
Author Organization [facility] Address 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 She mentioned that it went away, and she went to work, but when she got there, people noticed her speech was slurred. She had another episode then, but this time she didn???t feel numb. During these episodes, she feels pressure in her head, her skin gets hot, she runs a fever, and her heart rate speeds up, making her feel her heartbeat in her ears. She also mentioned that her blood pressure tends to be low, but lately it has been higher, around 140/84, and her oxygen levels drop to about 92 to 93%. After leaving work, she went to the ER, where they did a CT scan and some lab tests, and everything came back normal. She has a history of anxiety and had migraines as a child, but she hasn???t had any in years. She finds these episodes uncomfortable and says it???s hard to explain. Right now, she???s taking 1to 2 Tylenol tablets daily but is curious if she could take aspirin to help lower her blood pressure. She also has an appointment scheduled at the office tomorrow. Mónica OLIVA * Telephone Encounter - [place] - 10/08/2024 12:44 PM CDT Copied from [facility] #[id number]. Topic: Symptomatic Care >> Oct 08, 2024 12:39 PM Grayson Gaxiola wrote: Has this patient seen any provider (current or former) at the requested clinic in the past? Yes, Select the appropriate age range and symptom Patient has symptoms and is seeking care. Caller Name: Radha Higuera Callback Number: Telephone Information: Call Notes: Patient is having blood pressure 120/62 to 139/80. Patient is not feeling well and would like medication advice. Age Range/Symptom: Adult 18+ - Blood pressure reading is greater than (>) or equal to 180 top number (systolic), less than (<) or equal to 90 top number (systolic) or greater than (>) or equal to 120 bottom number (diastolic) within the past 12 hours Caller reported patient's blood pressure was 120/62 - 139/80, last taken at 12:30 pm. Transferred to [facility] line and Nusrat answered call. documented in this encounter Plan of Treatment Upcoming Encounters Date Type Department Care Team (Late st Contact Info) Description 10/09/2024 2:20 PM CDT Office Visit [facility] [address] [place] [address] Ashley Rogel, [place] [address] [place] [address] 03/19/2025 2:40 PM INSPECTOR CHIEF Office Visit [facility] [address] [place] [address] Francois Bean MD [address] [place] [address] 04/14/2025 12:20 PM INSPECTOR CHIEF Office Visit [address] [address] Francois Bean MD [address] [place] [address] documented as of this encounter Visit Diagnoses Not on filedocumented in this encounter Care Teams Tube Pusher Relationship Specialty Start Date End Date Francois Bean MD [address] [place] [address] PCP - General Family Practice 05/05/18 documented as of this encounter
--- OUTSIDE RECORDS SUMMARY | 2024-10-08 20:30 | XMS_ITS | Encounter Summary ---
Author Organization [facility] Address 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 Topic: CPA Information Request - Results >> Oct 06, 2024 8:54 AM Filipe Dalal wrote: Caller is requesting information about results from an order. ? Caller Name: Radha Higuera Callback Number: Telephone Information: Test Name: labs Results Encounter notes are: Telephone encounter related to results is not available and was completed more than 7 days Verify that caller has called the correct provider that order the test. Did the caller call the correct provider? Yes Call Notes: Results were not given and the patient needs a call back documented in this encounter Plan of Treatment Upcoming Encounters Date Type Department Care Team (Late st Contact Info) Description 10/09/2024 2:20 PM CDT Office Visit [facility] [address] [address] Ashley Rogel FNP [address] [place] [address] 03/19/2025 2:40 PM SHELL SORTER Office Visit [facility] [address] [place] [address] Francois Bean MD [address] [address] 04/14/2025 12:20 PM SHELL SORTER Office Visit [address] [address] Francois Bean MD [address] [place] [address] documented as of this encounter Visit Diagnoses Not on filedocumented in this encounter Care Teams Hospital Sales Representative Relationship Specialty Start Date End Date Francois Bean MD [address] [address] PCP - General Family Practice 05/05/18 documented as of this encounter
--- OUTSIDE RECORDS SUMMARY | 2024-10-08 20:30 | XMS_ITS | Encounter Summary ---
Author Organization [facility] Address [address] [place] [address] Care Team Providers Care Residence Counselor Name Role Phone Francois Bean MD Primary Care Provider [phone] [phone] Reason for Referral * Eval and Treat (Routine) - Pending Review Specialty Diagnoses / Procedures Referred By Contac t Referred To Contact Rheumatology Diagnoses Polyarthralgia Nodule of finger of both hands Positive SCARLETT (antinuclear antibody) Anti-FIRE INFORMATION OFFICER antibodies present Procedures IN OFFICE/OUTPATIENT ESTABLISHED MOD MDM 30 MIN IN OFFICE/OUTPATIENT NEW MODERATE MDM 45 MINUTES Francois Bean MD [address] [address] Phone: tel: fax: [facility] [address] [place] [address] Phone: tel: fax: Referral ID Status Reason Start Date Expiration Date V isits Requested Visits Authorized [id number] Pending Review 10/07/2024 10/07/2025 1 1 Reason for Visit * Reason Onset Date Comments Lab Results 10/07/2024 Patient Communication Encounter Details Date Type Department Care Team (Late st Contact Info) Description 10/07/2024 Results Follow-Up [facility] Family Medicine [place] [address] [address] Francois Bean MD [address] [phone] C-REACTIVE PROTEIN, TSH, HEMOGLOBIN A1C, CONNECTIVE TISSUE DISEASE CASCADE Social History Tobacco Use Types Packs/Day Years [...] on file 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 Voiced understanding. Cesia OLIVA * Telephone Encounter - Sailaja Hallman - 10/07/2024 1:10 PM CDT Copied from [facility] #[id number]. Topic: CPA Information Request >> Oct 07, 2024 1:09 PM Sailaja Choe wrote: Caller is returning phone call from clinic. Caller Name: Radha Higuera Patient/Caregiver Callback Number: Telephone Information: Clinic Left Note In Chart Is there a note from the clinic requesting the caller be transferred when they call back? No Are the credentials of the caregiver who called the patient apparel sales leader? Yes Call Notes: Communicated information that is documented in the note. Caller wants a call back from clinic. * Telephone Encounter - Cesia Moya RN - 10/07/2024 1:06 PM CDT 10/07/2024 1:06 PM No answer. Left voice mail/message that patient/caregiver can return our call. If patient/caregivercalls back, contact center please inform caller to expect a return call from the clinic. Cesia OLIVA * Telephone Encounter - Cesia Moya RN - 10/07/2024 1:06 PM CDT ----- Message from Dr. Francois Bean sent at 10/07/2024 12:15 PM CDT ----- Inflammatory marker negative, thyroid normal, A1c negative for diabetes, SCARLETT positive, FIRE INFORMATION OFFICER antibodypositive, these are weakly positive and may be false positives however they can be present in mixedconnective tissue diseases, due to her persistent joint pain and swelling in her hands consultationwith summer internship would be recommended, x-ray of the hands has been ordered and I recommend patient go ahead and proceed with this imaging. Referral to rheumatology will also be ordered. documented in this encounter Plan of Treatment Upcoming Encounters Date Type Department Care Team (Late st Contact Info) Description 10/09/2024 2:20 PM CDT Office Visit [facility] [address] [phone] Ashley Rogel FNP [address] [address] 03/19/2025 2:40 PM CHAIRMAN Office Visit [facility] [address] [address] Francois Bean MD [address] [address] 04/14/2025 12:20 PM CHAIRMAN Office Visit [address] [address] Francois Bean MD [address] [address] Scheduled Referrals Name Type Priority Associated Diagnoses Order Schedule AMB REFERRAL TO RHEUMATOLOGY Outpatient Referral Routine Polyarthralgia Nodule of finger of both hands Positive SCARLETT (antinuclear antibody) Anti-FIRE INFORMATION OFFICER antibodies present Ordered: 10/07/2024 documented as of this encounter Visit Diagnoses Diagnosis Polyarthralgia- Primary Pain in joint, multiple sites Nodule of finger of both hands Positive SCARLETT (antinuclear antibody) Other and unspecified nonspecific immunological findings Anti-FIRE INFORMATION OFFICER antibodies present Other and unspecified nonspecific immunological findings documented in this encounter Care Teams Residence Counselor Relationship Specialty Start Date End Date Francois Bean MD [address] [phone] PCP - General Family Practice 05/05/18 documented as of this encounter
--- OUTSIDE RECORDS SUMMARY | 2024-10-08 20:30 | XMS_ITS | Encounter Summary ---
Author Organization [facility] Address [address] [place] [address] Care Team Providers Care Dealer Card Room Name Role Phone Francois Bean MD Primary Care Provider [phone] [phone] Encounter Details Date Type Department Care Team (Latest Contact Info) Description 08/23/1999 Outpatient Historical [facility] Medicine- [address] [phone] Cristo Degroot MD [address] [facility] [address] [place] [address] Contraceptive surveillance, unspecified (Primary Dx) Social History Tobacco Use Types Packs/Day Years Used Date Smoking Tobacco: Never Assessed Comments Unknown Sex and Gender Information Value Date Recorded Sex Assigned at Not on file 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
--- OUTSIDE RECORDS SUMMARY | 2024-10-08 20:30 | XMS_ITS | Encounter Summary ---
Author Organization [facility] Address [address] [place] [address] Care Team Providers Care Billing Machine Operator Name Role Phone Francois Bean MD Primary Care Provider [phone] [phone] Encounter Details Date Type Department Care Team (Latest Contact Info) Description 10/11/1999 Outpatient Historical [facility] Medicine- [address] [address] Cristo Degroot MD [address] [facility] [address] [place] [address] Anxiety state, unspecified (Primary Dx); Panic disorder without agoraphobia Social History Tobacco Use Types Packs/Day Years Used Date Smoking Tobacco: Never Assessed Comments Unknown Sex and Gender Information Value Date Recorded Sex Assigned at Not on file 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
--- OUTSIDE RECORDS SUMMARY | 2024-10-08 20:30 | XMS_ITS | Encounter Summary ---
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 Gender Identity Not on file Sexual Orientation Not on file documented as of this encounter Plan of Treatment Upcoming Encounters Date Type Department Care Team (Late st Contact Info) Description 10/09/2024 2:20 PM CDT Office Visit [address] [address] Ashley Rogel FNP [address] [address] 03/19/2025 2:40 PM RAILROAD INSPECTOR Office Visit [address] [address] Francois Bean MD [address] [address] 04/14/2025 12:20 PM RAILROAD INSPECTOR Office Visit [facility] [address] [place] [address] Francois Bean MD [address] [address] documented as of this encounter Visit Diagnoses Not on filedocumented in this encounter Care Teams Clubhouse Attendant Relationship Specialty Start Date End Date Francois Bean MD [address] [address] PCP - General Family Practice 05/05/18 documented as of this encounter
--- OUTSIDE RECORDS SUMMARY | 2024-10-08 20:30 | XMS_ITS | Encounter Summary ---
Author Organization [facility] Address [address] [place] [address] Care Team Providers Care Bureau Chief Name Role Phone Francois Bean MD Primary Care Provider +1 -[phone] Encounter Details Date Type Department Care Team (Latest Contact Info) Description 07/11/1999 Outpatient Historical [facility] Family Medicine [address] [address] Emanuel Arredondo DO NO ADDRESS ON FILE Depressive disorder, not elsewhere classified (Primary Dx) Social History Tobacco Use Types Packs/Day Years Used Date Smoking Tobacco: Never Assessed Comments Unknown Sex and Gender Information Value Date Recorded Sex Assigned at Not on file 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
--- OUTSIDE RECORDS SUMMARY | 2024-10-08 20:30 | XMS_ITS | Encounter Summary ---
Author Organization [facility] Address [address] [place] [address] Care Team Providers Care Director Of Residence Life Name Role Phone Francois Bean MD Primary Care Provider +1 -[phone] Encounter Details Date Type Department Care Team (Latest Contact Info) Description 03/28/1999 Outpatient Historical [facility] Family Medicine [address] [address] Emanuel Arredondo DO NO ADDRESS ON FILE Depressive disorder, not elsewhere classified (Primary Dx) Social History Tobacco Use Types Packs/Day Years Used Date Smoking Tobacco: Never Assessed Comments Unknown Sex and Gender Information Value Date Recorded Sex Assigned at Not on file 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
--- OUTSIDE RECORDS SUMMARY | 2024-10-08 20:30 | XMS_ITS | Encounter Summary ---
Author Organization [facility] Address [address] [place] [address] Care Team Providers Care Electrical Mechanical Technician Name Role Phone Francois Bean MD Primary Care Provider +1 -[phone] Encounter Details Date Type Department Care Team (Latest Contact Info) Description 03/01/1999 Outpatient Historical [facility] Medicine- [address] [phone] Cristo Degroot MD [address] [facility] [address] [place] [address] Other general counseling and advice for contraceptive management (Primary Dx) Social History Tobacco Use Types Packs/Day Years Used Date Smoking Tobacco: Never Assessed Comments Unknown Sex and Gender Information Value Date Recorded Sex Assigned at Not on file Legal Sex Female 4:24 AM LENS GRINDER ROUGH Gender Identity Not on file Sexual Orientation Not on file documented as of this encounter Plan of Treatment Not on file documented as of this encounter Visit Diagnoses Diagnosis Other general counseling and advice for contraceptive management- Primary documented in this encounter Care Teams Electrical Mechanical Technician Relationship Specialty Start Date End Date Francois Bean MD [address] [address] PCP - General Family Practice 05/05/18 documented as of this encounter
--- OUTSIDE RECORDS SUMMARY | 2024-10-08 20:30 | XMS_ITS | Encounter Summary ---
Author Organization [facility] Address [address] [place] [address] Care Team Providers Care Physician Extender Name Role Phone Francois Bean MD Primary Care Provider +1 -[phone] Encounter Details Date Type Department Care Team (Latest Contact Info) Description 04/24/1999 Outpatient Historical [facility] Family Medicine [place] [address] [address] Emanuel Arredondo DO NO ADDRESS ON FILE Headache(784.0) (Primary Dx); Depressive disorder, not elsewhere classified Social History Tobacco Use Types Packs/Day Years Used Date Smoking Tobacco: Never Assessed Comments Unknown Sex and Gender Information Value Date Recorded Sex Assigned at Not on file 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
--- OUTSIDE RECORDS SUMMARY | 2024-10-08 20:30 | XMS_ITS | Encounter Summary ---
Author Organization [facility] Address [address] [place] [address] Care Team Providers Care Gardening Instructor Name Role Phone Francois Bean MD Primary Care Provider +1 -[phone] Encounter Details Date Type Department Care Team (Latest Contact Info) Description 06/29/1999 Outpatient Historical [facility] Family Medicine [place] [address] [address] Betzaida Woods NO ADDRESS ON FILE Conjunctivitis unspecified (Primary Dx); Acute pharyngitis Social History Tobacco Use Types Packs/Day Years Used Date Smoking Tobacco: Never Assessed Comments Unknown Sex and Gender Information Value Date Recorded Sex Assigned at Not on file 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
== END 2024-10-08 22:40 | disposition left against medical advice (07) ==
PROVIDERS: Emergency Provider Family Medicine; PCP Family Medicine
DX: Z53.21 Procedure and treatment not carried out due to patient leaving prior to being seen by health care provider (principal)

== ENCOUNTER 2025-02-07 00:58 | Emergency (ER) | payer SELFPAY ==
--- OUTSIDE RECORDS SUMMARY | 2025-02-07 01:02 | XMS_ITS | Encounter Summary ---
Author Organization [facility] Address [address] [place] [address] Care Team Providers Care Credit Product Analyst Name Role Phone Francois Bean MD Primary Care Provider +1 -[phone] Encounter Details Date Type Department Care Team (Latest Contact Info) Description 08/23/1999 Outpatient Historical 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
--- OUTSIDE RECORDS SUMMARY | 2025-02-07 01:02 | XMS_ITS | Encounter Summary ---
Author Organization [facility] Address [address] [place] [address] Care Team Providers Care Survey Worker Name Role Phone Francois Bean MD Primary Care Provider +1 -[phone] Encounter Details Date Type Department Care Team (Latest Contact Info) Description 09/11/1999 Outpatient Historical [facility] Medicine [place] [address] [address] Emanuel Arredondo DO NO ADDRESS ON FILE Depressive disorder, not elsewhere classified (Primary Dx); Cardiac dysrhythmia, unspecified Social History Tobacco Use Types Packs/Day Years Used Date Smoking Tobacco: Never Assessed Comments Unknown Sex and Gender Information Value Date Recorded Sex Assigned at Not on file Legal Sex Female 4:24 AM CREDIT REPORTER Gender Identity Not on file Sexual Orientation Not on file documented as of this encounter Plan of Treatment Not on file documented as of this encounter Visit Diagnoses Diagnosis Depressive disorder, not elsewhere classified- Primary Cardiac dysrhythmia, unspecified documented in this encounter Care Teams Survey Worker Relationship Specialty Start Date End Date Francois Bean MD [address] [address] PCP - General Family Practice 05/05/18 documented as of this encounter
--- OUTSIDE RECORDS SUMMARY | 2025-02-07 01:02 | XMS_ITS | Encounter Summary ---
Author Organization [facility] Address [address] [place] [address] Care Team Providers Care Test Driver Name Role Phone Francois Bean MD Primary Care Provider +1 -[phone] Encounter Details Date Type Department Care Team (Latest Contact Info) Description 02/10/1999 Outpatient Historical [facility] Medicine- [address] [phone] Emanuel Arredondo DO NO ADDRESS ON FILE Panic disorder without agoraphobia (Primary Dx) Social History Tobacco Use Types Packs/Day Years Used Date Smoking Tobacco: Never Assessed Comments Unknown Sex and Gender Information Value Date Recorded Sex Assigned at Not on file 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
--- OUTSIDE RECORDS SUMMARY | 2025-02-07 01:02 | XMS_ITS | Encounter Summary ---
Author Organization [facility] Address [address] [place] [address] Care Team Providers Care Plasma Processing Centrifuge Operator Name Role Phone Francois Bean MD Primary Care Provider +1 -[phone] Encounter Details Date Type Department Care Team (Latest Contact Info) Description 07/11/1999 Outpatient Historical [facility] Family Medicine [address] [address] Emanuel Arredondo DO NO ADDRESS ON FILE Depressive disorder, not elsewhere classified (Primary Dx) Social History Tobacco Use Types Packs/Day Years Used Date Smoking Tobacco: Never Assessed Comments Unknown Sex and Gender Information Value Date Recorded Sex Assigned at Not on file 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
--- OUTSIDE RECORDS SUMMARY | 2025-02-07 01:02 | XMS_ITS | Encounter Summary ---
Author Organization [facility] Address [address] [place] [address] Care Team Providers Care Manager Corporate Communications Name Role Phone Francois Bean MD Primary Care Provider +1 -[phone] Encounter Details Date Type Department Care Team (Latest Contact Info) Description 06/29/1999 Outpatient Historical [facility] Family Medicine [place] [address] [address] Betzaida Woods NO ADDRESS ON FILE Conjunctivitis unspecified (Primary Dx); Acute pharyngitis Social History Tobacco Use Types Packs/Day Years Used Date Smoking Tobacco: Never Assessed Comments Unknown Sex and Gender Information Value Date Recorded Sex Assigned at Not on file 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
--- OUTSIDE RECORDS SUMMARY | 2025-02-07 01:02 | XMS_ITS | Encounter Summary ---
Author Organization [facility] Address [address] [place] [address] Care Team Providers Care K 12 School Professional Name Role Phone Francois Bean MD Primary Care Provider +1 -[phone] Encounter Details Date Type Department Care Team (Latest Contact Info) Description 10/11/[address] 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
--- OUTSIDE RECORDS SUMMARY | 2025-02-07 01:02 | XMS_ITS | Encounter Summary ---
Author Organization [facility] Address [address] [place] [address] Care Team Providers Care Insulation Foreman Name Role Phone Francois Bean MD Primary Care Provider +1 -[phone] Encounter Details Date Type Department Care Team (Late st Contact Info) Description 02/02/2025 External Device Data [facility] ABSTRACTION Provider, Abstract NO ADDRESS ON FILE Social History Tobacco Use Types Packs/Day Years [...] on file Legal Sex Female 9:47 AM PUTAWAY DRIVER Gender Identity Not on file Sexual Orientation Not on file documented as of this encounter Plan of Treatment Upcoming Encounters Date Type Department Care Team (Late st Contact Info) Description 03/19/2025 2:40 PM PUTAWAY DRIVER Office Visit [address] [address] Francois Bean MD [address] [address] 04/14/2025 12:20 PM PUTAWAY DRIVER Office Visit [address] [address] Francois Bean MD [address] [address] documented as of this encounter Visit Diagnoses Not on filedocumented in this encounter Care Teams Insulation Foreman Relationship Specialty Start Date End Date Francois Bean MD [address] [address] PCP - General Family Practice 05/05/18 documented as of this encounter
--- OUTSIDE RECORDS SUMMARY | 2025-02-07 01:02 | XMS_ITS | Clinical Summary ---
Author Organization [facility] Address [address] [place] [address] Care Team Providers Care Beef Lugger Name Role Phone Francois Bean MD Primary Care Provider +1 -[phone] Allergies Active Allergy Reactions Criticality Noted Date [...] on file Legal Sex Female 4:24 AM HAND BUFFING WHEEL FORMER Gender Identity Not on file Sexual Orientation [...] 19+ 3-dose series) 2000 HPV/Cotest (21-29) 2002 HPV VACCINES (1 - 3-dose SCDM series) 2008 CERVICAL CANCER SCREENING 07/10/2011 HPV/Cotest (30-65) 07/10/2011 PAP SMEAR 07/10/2011 BREAST CANCER SCREENING 2021 INFLUENZA VACCINE (#1) 2024 02/04/2020, 2018 Care Teams Beef Lugger Relationship Specialty Start Date End Date Francois Bean MD [address] [address] PCP - General Family Practice 05/05/18
--- OUTSIDE RECORDS SUMMARY | 2025-02-07 01:03 | XMS_ITS | Encounter Summary ---
Author Organization [facility] Address [address] [place] [address] Care Team Providers Care Economics Teacher Name Role Phone Francois Bean MD Primary Care Provider +1 -[phone] Encounter Details Date Type Department Care Team (Latest Contact Info) Description 03/28/1999 Outpatient Historical [facility] Family Medicine [address] [address] Emanuel Arredondo DO NO ADDRESS ON FILE Depressive disorder, not elsewhere classified (Primary Dx) Social History Tobacco Use Types Packs/Day Years Used Date Smoking Tobacco: Never Assessed Comments Unknown Sex and Gender Information Value Date Recorded Sex Assigned at Not on file 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
--- OUTSIDE RECORDS SUMMARY | 2025-02-07 01:03 | XMS_ITS | Clinical Summary ---
Author Organization [facility] Address [address] [facility] Attn: Epic Prelude ADT [place] [address] Care Team Providers Care Banquet Server On Call Name Role Phone Francois Bean MD Primary Care Provider +1 -[phone] Allergies Active Allergy Reactions Criticality Noted Date Comments Codeine Shortness of Breath/Wheezing High 020 Morphine Itching Low 01/21/2017 Penicillins Abdominal Pain Low 03/06/2020 Medications nebulizerIndicat ions:Wheezing Length of need 99 months Nebulizer with compressor, Kit: Disposable Nebulizer Kit, 2 per month, filters , areosol mask: Yes. Name of Medication: albuterol 1 Each 5 Active Additional Information Patient not taking.Reported on 09/16/2024 albuterol (PROVENTIL,ALVERTO TY) 2.5 mg /3 mL (0.083 %) Solution for Nebulization Take 3 mL (2.5 mg) by inhalation every 6 hours as needed for Shortness of Breath. 90 mL 2 5 Active clonazePAM (KlonoPIN) 1 mg tabletIndication s:ANIVAL (generalized anxiety disorder) TAKE ONE TABLET BY MOUTH IN THE MORNING AND 1/2 TABLET IN THE AFTERNOON AND 1/2 TABLET IN THE EVENING NEEDED FOR ANXIETY 60 Tablet 5 5 Active cyproheptadine (PERIACTIN) 4 mg tabletIndication s:Appetite loss Take 1 Tablet (4 mg) by mouth 2 times daily. 180 Tablet 3 5 Active albuterol sulfate HFA 90 mcg/actuation aerosol inhalerIndicatio ns:Mild intermittent reactive airway disease without complication Take 2 Puffs by inhalation every 4 hours as needed for Shortness of Breath. 18 Gram 2 Active ondansetron (ZOFRAN ODT) 4 mg Tablet, Rapid DissolveIndicati ons:Nausea Take 1 Tablet (4 mg) by mouth every 8 hours as needed for Nausea/Emesis. Dissolve tablet on top of tongue, then swallow with saliva. 20 Tablet Active Active Problems Problem Noted Date Diagnosed [...] Encounters Date Type Department Care Team Description 02/02/2025 External Device Data [facility] ABSTRACTION Provider, Abstract 01/27/2025 External Device Data [facility] ABSTRACTION Provider, Abstract 01/27/2025 External Device Data [facility] ABSTRACTION Provider, Abstract 01/05/2025 External Device Data [facility] ABSTRACTION Provider, Abstract 01/05/2025 External Device Data [facility] ABSTRACTION Provider, Abstract 12/01/2024 External Device Data [facility] ABSTRACTION Provider, Abstract 12/01/2024 External Device Data [facility] ABSTRACTION Provider, Abstract 11/18/2024 External Device Data [facility] ABSTRACTION Provider, Abstract 11/17/2024 External Device Data [facility] ABSTRACTION Provider, Abstract from Last 3 Months Immunizations Immunization Administration Dates Next Due (M-M-R II/PRIORIX)(12 MO UP) MEASLES, MUMPS AND RUBELLA VIRUS VACCINE, 0.5 ML IM/SUBCUT 11/21/1982 (TDVAX)(7 YRS UP) TETANUS AN D DIPHTHERIA TOXOIDS, ADSORBED (2 LF OF TETANUS TOXOID AND 2 LF OF DIPHTHERIA TOXOID), 0.5ML (PF), IM 03/16/1997 Diptheria, Tetanus Toxoids, And Whole Cell Pertussis Vaccine (DTP), for intramuscular use 12/13/1986,04/13/1983,1981,08/19 Hepatitis B Vaccine, Unspeci fied Formulation 07/08/1998,04/25/1998,03/03/1998 Influenza Seasonal Unspecifi ed Formulation IM 01/23/2019 Poliovirus Vaccine Live Oral 12/13/1986 Poliovirus Vaccine, Unspecif ied Formulation 04/13/1983,02/17/1982,1981,08/19 Family History Medical History Relation Name Comments [...] 11/21/2016 Smokeless Tobacco: Never Tobacco Cessation:Counseling Given: No Alcohol Use Standard Drinks/Week Comments No 0 (1 standard drink = 0.6 oz pur e alcohol) Feeling Safe Answer Date Recorded Are you in a relationship wi th someone who hurts you emotionally and/or physically? No 10/07/2024 Comments No Sex and Gender Information Value Date Recorded Sex Assigned at Not on file Legal Sex Female 9:47 AM CUSTODIAN BLOOD BANK Gender Identity Not on file Sexual Orientation Not on file Last Filed Vital Signs Vital Sign Reading Time Taken Comments Blood Pressure 119/80 10/09/2024 2:21 PM CDT Pulse 108 10/09/2024 2:21 PM CDT Temperature 37.1 C (98.7 F) 10/09/2024 2:21 PM CDT Respiratory Rate 16 10/09/2024 2:21 PM CDT Oxygen Saturation 99% 10/09/2024 2:21 PM CDT Inhaled Oxygen Concentration - - Weight 53.2 kg (117 lb 6 oz) 10/09/2024 2:21 PM CDT Height 162.6 cm (5' 4 ) 10/09/2024 2:21 PM CDT Body Mass Index 20.15 10/09/2024 2:21 PM CDT Plan of Treatment Upcoming Encounters Date Type Department Care Team (Late st Contact Info) Description 03/19/2025 2:40 PM CUSTODIAN BLOOD BANK Office Visit [facility] [address] [place] [address] Francois Bean MD [address] [place] [address] 04/14/2025 12:20 PM CUSTODIAN BLOOD BANK Office Visit [facility] [address] [place] [address] Francois Bean MD [address] [place] [address] Health Maintenance Due Date Last Done Comments DTAP/TDAP/TD VACCINES (5 - Tdap) 03/17/1997 03/16/1997, 12/13/1986, 04/13/1983, Additional history exists HPV/Cotest (21-29) 2002 HPV VACCINES (1 - 3-dose SCD M series) 2008 CERVICAL CANCER SCREENING 07/10/2011 HPV/Cotest (30-65) 07/10/2011 PAP SMEAR 07/10/2011 INFLUENZA VACCINE (#1) 2024 3, 02/04/2020, 01/23/2019 BREAST CANCER SCREENING 02/25/2025 02/26/2024 HEPATITIS B VACCINES Completed 07/08/1998, 04/25/1998, 03/03/1998 Procedures Procedure Name Priority Date/Time Associated Diagnosis Comments MAMMO 3D [facility] DIAGNOSTIC BILAT W OR WO CAD Routine 02/26/2024 12:38 PM CUSTODIAN BLOOD BANK Mass of lower outer quadrant of left breast Subareolar mass of right breast from Last 3 Months or Most Recently Relevant to Health Maintenance Results * MAMMO 3D [facility] DIAGNOSTIC BILAT W OR WO CAD (02/26/2024 12:38 PM CUSTODIAN BLOOD BANK) Anatomical Region Laterality Modality Breast Bilateral Mammography 02/26/2024 12:3 8 PM CUSTODIAN BLOOD BANK Impressions 03/02/2024 9:53 AM CUSTODIAN BLOOD BANK IMPRESSION: BI-RADS 2. Benign cysts bilateral breasts including areas of lumps, although density of the breast tissue can limit the sensitivity of mammography. Continue annual screening mammography. Patient wanted cyst aspiration of the left side, this can be scheduled as indicated. Findings and verbal/written recommendations were conveyed to the patient after completion of the exam. [id number] Narrative 03/02/2024 9:53 AM CUSTODIAN BLOOD BANK EXAMINATION: Bilateral diagnostic mammography with tomosynthesis. Films [...] the patient after completion of the exam. [id number] Nilam Ferrer Tim DRAFTING SUPERVISOR MAMMO ORDERABLES Final R esult from Last 3 Months or Most Recently Relevant to Health Maintenance Care Teams Banquet Server On Call Relationship Specialty Start Date End Date Francois Bean MD [address] [address] PCP - General Family Practice 05/05/18
--- OUTSIDE RECORDS SUMMARY | 2025-02-07 01:03 | XMS_ITS | Encounter Summary ---
Author Organization [facility] Address [address] [place] [address] Care Team Providers Care Brass Instrument Repair Technician Name Role Phone Francois Bean MD Primary Care Provider +1 -[phone] Encounter Details Date Type Department Care Team (Latest Contact Info) Description 02/27/1999 Outpatient Historical [facility] Family Medicine [place] [address] [address] Emanuel Arredondo DO NO ADDRESS ON FILE Panic disorder without agoraphobia (Primary Dx); Absence of menstruation Social History Tobacco Use Types Packs/Day Years Used Date Smoking Tobacco: Never Assessed Comments Unknown Sex and Gender Information Value Date Recorded Sex Assigned at Not on file 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
--- OUTSIDE RECORDS SUMMARY | 2025-02-07 01:03 | XMS_ITS | Encounter Summary ---
Author Organization [facility] Address [address] [place] [address] Care Team Providers Care Milk Drying Machine Operator Name Role Phone Francois Bean MD Primary Care Provider +1 -[phone] Encounter Details Date Type Department Care Team (Latest Contact Info) Description 03/01/1999 Outpatient Historical [facility] Medicine- [address] [phone] Cristo Degroot MD [address] [facility] [address] [place] [phone] Other general counseling and advice for contraceptive management (Primary Dx) Social History Tobacco Use Types Packs/Day Years Used Date Smoking Tobacco: Never Assessed Comments Unknown Sex and Gender Information Value Date Recorded Sex Assigned at Not on file 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
--- OUTSIDE RECORDS SUMMARY | 2025-02-07 01:03 | XMS_ITS | Encounter Summary ---
Author Organization [facility] Address [address] [place] [address] Care Team Providers Care Life Insurance Sales Agent Name Role Phone Francois Bean MD Primary Care Provider +1 -[phone] Encounter Details Date Type Department Care Team (Latest Contact Info) Description 04/24/1999 Outpatient Historical [facility] Family Medicine [place] [address] [address] Emanuel Arredondo DO NO ADDRESS ON FILE Headache(784.0) (Primary Dx); Depressive disorder, not elsewhere classified Social History Tobacco Use Types Packs/Day Years Used Date Smoking Tobacco: Never Assessed Comments Unknown Sex and Gender Information Value Date Recorded Sex Assigned at Not on file Legal Sex Female 4:24 AM SURGEON'S ASSISTANT Gender Identity Not on file Sexual Orientation Not on file documented as of this encounter Plan of Treatment Not on file documented as of this encounter Visit Diagnoses Diagnosis Headache(784.0)- Primary Headache Depressive disorder, not elsewhere classified documented in this encounter Care Teams Life Insurance Sales Agent Relationship Specialty Start Date End Date Francois Bean MD [address] [address] PCP - General Family Practice 05/05/18 documented as of this encounter
--- OUTSIDE RECORDS SUMMARY | 2025-02-07 01:03 | XMS_ITS | Encounter Summary ---
Author Organization [facility] Address [address] [place] [address] Care Team Providers Care Golf Ball Marker Name Role Phone Francois Bean MD Primary Care Provider [phone] Encounter Details Date Type Department Care Team (Latest Contact Info) Description 05/29/1999 Outpatient Historical [facility] Family Medicine [address] [address] Emanuel Arredondo DO NO ADDRESS ON FILE Absence of menstruation (Primary Dx); Headache(784.0); Surveillance of other previously prescribed contraceptive method Social History Tobacco Use Types Packs/Day Years Used Date Smoking Tobacco: Never Assessed Comments Unknown Sex and Gender Information Value Date Recorded Sex Assigned at Not on file 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
--- OUTSIDE RECORDS SUMMARY | 2025-02-07 01:03 | XMS_ITS | Encounter Summary ---
Author Organization [facility] Address [address] [place] [address] Care Team Providers Care Card Game Operator Name Role Phone Francois Bean MD Primary Care Provider [phone] Encounter Details Date Type Department Care Team (Latest Contact Info) Description 02/13/1999 Outpatient Historical [facility] Family Medicine [address] [address] Emanuel Arredondo DO NO ADDRESS ON FILE Depressive disorder, not elsewhere classified (Primary Dx) Social History Tobacco Use Types Packs/Day Years Used Date Smoking Tobacco: Never Assessed Comments Unknown Sex and Gender Information Value Date Recorded Sex Assigned at Not on file Legal Sex Female 4:24 AM SHIPPING CLERK CRATING Gender Identity Not on file Sexual Orientation Not on file documented as of this encounter Plan of Treatment Not on file documented as of this encounter Visit Diagnoses Diagnosis Depressive disorder, not elsewhere classified- Primary documented in this encounter Care Teams Card Game Operator Relationship Specialty Start Date End Date Francois Bean MD [address] [address] PCP - General Family Practice 05/05/18 documented as of this encounter
[2025-02-07 01:14] VITALS: BP 134/76; PULSE 80; RESP 20; TEMP 36.8; O2SAT 99; BMI 21.9
== END 2025-02-07 01:32 | disposition left against medical advice (07) ==
PROVIDERS: Emergency Provider Emergency Medicine; PCP Family Medicine
DX: Z53.21 Procedure and treatment not carried out due to patient leaving prior to being seen by health care provider (principal)